=== PATIENT | male | born 1955 | race Caucasian/White ===

== ENCOUNTER 2018-07-07 14:51 | Inpatient (IN) ==
[2018-07-07] MEDS ORDERED: *HR* Promethazine 25 MG/ML VIAL IVP ONE (15:16)
--- NOTE | 2018-07-07 15:20 | Emergency Department Note ---
Disposition Clinical Impression: Cerebrovascular accident Qualifiers: CVA mechanism: occlusion Precerebral and cerebral artery: unspecified cerebral artery Qualified Code(s): I63.50 - Cerebral infarction due to unspecified occlusion or stenosis of unspecified cerebral artery Disposition: Admitted As Inpatient Condition: Good Referrals: NONE,PCP [Primary Care Provider] - Forms: ED Satisfaction Letter Time of Disposition: 18:45 Dizziness HPI - General Chief Complaint: ED Dizziness Stated Complaint: Dizziness,Vision changes Time Seen by Provider: 07/07/18 15:01 Source: patient Mode of arrival: ambulatory Limitations: no limitations Nursing Notes Reviewed: Yes Vital Signs Reviewed: Yes - History of Present Illness HPI Narrative: This is a 63-year-old male who comes to the emergency department reporting dizziness and difficulty with his balance that began 4 days prior to arrival. He also reports the onset of blurry vision at that time. He has worn glasses his entire life, but does not use them to read. He does not have bifocals or progressive lenses. He states the dizziness is associated with loss of equilibrium, and that this is worse when he first stands up. - Related Data Home Medications Medication Instructions Recorded Confirmed Aspirin [Adult Low Dose Aspirin EC] 81 mg PO DAILY 12/02/15 12/02/15 Atorvastatin [Lipitor] 10 mg PO HS 12/02/15 12/02/15 Gabapentin [Neurontin] 300 mg PO TID 12/02/15 12/02/15 Glimepiride [Amaryl] 4 mg PO DAILY 12/02/15 12/02/15 Metformin HCl [Glucophage] 1,000 mg PO 1-2XD 12/02/15 12/02/15 Metoprolol [Lopressor] 100 mg PO BID 12/02/15 12/02/15 Omeprazole [PriLOSEC] 20 mg PO DAILY 12/02/15 12/02/15 SitaGLIPtin [Januvia] 25 mg PO DAILY 12/02/15 12/02/15 Valsartan/Hydrochlorothiazide 320 mg PO DAILY 12/02/15 12/02/15 [Diovan Hct 320-25 mg Tablet] Previous Rx's Medication Instructions Recorded OxyCODONE Immed Rel [Roxicodone 5 1 - 2 tab PO Q4H PRN #60 tablet 12/03/15 MG] Rivaroxaban [Xarelto] 20 mg PO 1700 #30 tablet 12/03/15 Sulfamethoxazole/Trimeth DS 1 each PO BID #28 tablet 02/21/16 [Bactrim DS] Allergies Allergy/AdvReac Type Severity Reaction Status Date / Time No Known Allergies Allergy Verified 07/07/18 14:56 All systems ED: reviewed and negative except as stated. Eyes: Reports: vision change (Blurry vision) Neurological: Reports: abnormal gait, vertigo Past Medical History - Past Medical History Medical history: Reports: diabetes, hypertension Surgical history: Reports: angioplasty/stent Psychiatric history: Reports: no psych history - Social History Smoking Status: Never smoker Smokeless Tobacco Status: No Alcohol use: Reports: occasionally Drug use: Reports: none Physical Exam - General Limitations: no limitations General appearance: alert, in no apparent distress - Head Head exam: atraumatic, normocephalic, normal inspection - Eye Eye exam: Present: normal appearance, PERRL, EOMI. Absent: scleral icterus, conjunctival injection, nystagmus, miosis, mydriasis - Expanded Eye Exam Eyelids: left: normal inspection Pupils: Left: regular, round Sclera/Conjunctival: left: normal inspection Visual acuity (R) = 20/: 50 Visual acuity (L) = 20/: 40 With correction: No - Neck Neck exam: Present: normal inspection, full ROM, trachea midline - Chest Chest inspection: Present: normal inspection, symmetric chest wall rise - Respiratory Respiratory exam: Present: normal lung sounds bilaterally - Cardiovascular Cardiovascular exam: Present: regular rate, normal rhythm, normal heart sounds - Abdominal Exam Abdominal exam: Present: soft, Non-Tender. Absent: tenderness, distention, guarding, rebound, rigidity - Extremities Exam Extremities exam: Present: normal inspection, full ROM. Absent: tenderness, pedal edema - Neurological Exam Neurological exam: Present: alert, oriented X3, CN II-XII intact. Absent: normal gait (Gait is slightly wide-based, patient unable to tandem gait), motor sensory deficit - Expanded Neurological Exam Patient oriented to: Present: person, place, time Speech: Present: fluid speech Cranial nerves: EOM function (II, III, IV, ): Normal, facial sensation (V): Normal, facial palsy (VII): Normal, gag reflex (IX): Normal, spinal accessory function (XI): Normal, tongue deviation (XII): Normal Cerebellar function: finger to nose: Normal Motor strength - LUE: 5/5 Motor strength - RUE: 5/5 Motor strength - LLE: 5/5 Motor strength - RLE: 5/5 Upper motor neuron exam: kofi neglect: Absent bilaterally, pronator drift: Absent bilaterally Sensory exam upper extremity: light touch: Normal Sensory exam lower extremity: light touch: Normal Coma Scale Eye Opening: Spontaneous Coma Scale Motor Response: Obeys Commands Coma Scale Verbal Response: Oriented Coma Scale Total: 15 - Psychiatric Psychiatric exam: Present: normal affect, normal mood - Skin Skin exam: Present: warm, dry, intact, normal color Course Course Narrative: This is a 63-year-old male with persistent vertigo concerning for cerebellar stroke. Vital Signs Temperature 97.9 F 07/07/18 14:53 Pulse Rate 76 07/07/18 14:53 Respiratory Rate 16 07/07/18 14:53 Blood Pressure 185/93 07/07/18 14:53 O2 Sat by Pulse Oximetry 95 07/07/18 14:53 Temperature 97.9 F 07/07/18 14:53 Pulse Rate 82 07/07/18 18:44 Respiratory Rate 19 07/07/18 18:44 Blood Pressure 134/77 07/07/18 18:44 O2 Sat by Pulse Oximetry 97 07/07/18 18:44 Oxygen Delivery Oxygen Delivery Room Air Dizziness - Lab Data Lab results reviewed: Yes I reviewed the patient's lab results. Lab results narrative: CBC shows thrombocytopenia at 138 BMP shows elevated creatinine 1.35 Troponin was low Result diagrams: 07/07/18 15:15 07/07/18 15:15 Lab Results 07/07/18 07/07/18 Range/Units 15:15 15:15 WBC 7.5 (4.3-11.1) K/mcL RBC 5.63 H (4.19-5.50) M/mcL Hgb 15.9 (12.9-16.9) g/dL Hct 46.6 (37.5-50.1) % MCV 82.8 L (83.0-100.0) fL MCH 28.2 (28.0-33.3) pg MCHC 34.1 (31.6-35.5) g/dL RDW 15.4 H (11.5-14.5) % Plt Count 138 L (140-400) K/mcL MPV 11.5 (9.4-12.4) fL Immature Gran % 0.7 (0-4) % Seg Neutrophils % 71.4 % Lymphocytes % 17.3 % Monocytes % 7.8 % Eosinophils % 2.0 % Basophils % 0.8 % Neutrophils # 5.4 (1.6-8.9) K/mcL Lymphocytes # 1.3 (0.6-4.6) K/mcL Monocytes # 0.6 (0.0-1.3) K/mcL Eosinophils # 0.2 (0.0-0.6) K/mcL Basophils # 0.1 (0.0-0.2) K/mcL Sodium 133 L (136-145) mEq/L Potassium 4.0 (3.5-5.1) mEq/L Chloride 107 (98-107) mEq/L Carbon Dioxide 28 (23-29) mEq/L BUN 21 (8-23) mg/dL Creatinine 1.33 H (0.70-1.30) mg/dL Est GFR ( Amer) > 60 (> 60) Est GFR (Non-Af Amer) 54 L (> 60) BUN/Creatinine Ratio 16 (6-26) Glucose 236 H (70-105) mg/dL Calculated Osmolality 287 (280-300) Calcium 9.2 (8.6-10.3) mg/dL Troponin I < 0.03 (< 0.04) ng/mL - Radiology Data Radiology results reviewed: Yes I reviewed the patient's radiology results. Brain MRI showed a recent infarct in the posterior chris and multiple prior infarcts - EKG Data EKG attestation: Yes I reviewed and interpreted this EKG. EKG results narrative: EKG shows sinus rhythm, 75 bpm, T-wave inversions are noted in leads 1, 2, and aVF as well as V6, slight ST depression in V6 Critical Care Time Critical Care Time: Yes Total Critical Care Time: 15 Attestation: Critical care time was 15 minutes independent of separately billable procedures.
[2018-07-07 15:53] LABS: Basophils # 0.1 K/mcL (0.0-0.2); Basophils % 0.8 %; Eosinophils # 0.2 K/mcL (0.0-0.6); Hematocrit 46.6 % (37.5-50.1); Hemoglobin 15.9 g/dL (12.9-16.9); Immature Granulocytes % 0.7 % (0-4); Lymphocytes # 1.3 K/mcL (0.6-4.6); Lymphocytes % 17.3 %; Mean Corpuscular HGB Conc 34.1 g/dL (31.6-35.5); Mean Corpuscular Hemoglobin 28.2 pg (28.0-33.3); Mean Corpuscular Volume 82.8 fL (83.0-100.0); Mean Platelet Volume 11.5 fL (9.4-12.4); Monocytes # 0.6 K/mcL (0.0-1.3); Monocytes % 7.8 %; Neutrophils # 5.4 K/mcL (1.6-8.9); Platelet Count 138 K/mcL (140-400); Red Blood Count 5.63 M/mcL (4.19-5.50); Red Cell Distribution Width 15.4 % (11.5-14.5); Segmented Neutrophils % 71.4 %
[2018-07-07 16:15] LABS: BUN/Creatinine Ratio 16 (6-26); Blood Urea Nitrogen 21 mg/dL (8-23); Calcium 9.2 mg/dL (8.6-10.3); Carbon Dioxide 28 mEq/L (23-29); Chloride 107 mEq/L (98-107); Glucose 236 mg/dL (70-105); Osmolality,Calculated 287 (280-300); Sodium 133 mEq/L (136-145); eGFR For Non-African Americans 54 (> 60)
[2018-07-07 16:16] LABS: Troponin I < 0.03 ng/mL (< 0.04)
[2018-07-07] MEDS ORDERED: Gadolinium Contrast Agent (WT Based) IV PRN (20:19)
[2018-07-07] MEDS ORDERED: Dextrose Gel 15 GM/37.5 ML TUBE PO PRN ×2 (20:25)
[2018-07-07] MEDS ORDERED: 0.9 % Sodium Chloride 1,000 ML IVC SCH (20:30)
--- NOTE | 2018-07-07 20:54 | Internal Med History&Physical ---
Date of Encounter: 07/07/18 Time of Encounter: 20:51 Internal Medicine - H&P: HPI Chief complaint: dizziness Admitted From: Home Plans for Post Hospital Care: Home History of present illness: Mr. Pérez is a 63 year old man who is a former smoker with a history of diabetes , hypertension, peripheral vascular disease status post bypass grafting in both lower extremities and coronary artery disease status post quadruple bypass who presents with a complaint of dizziness and blurry vision that started in the evening 4 days ago of acute onset. He says since then his gait has been unsteady and his visual acuity has declined. He occasionally has diplopia and blurriness in seeing things. He denies headaches per se but says he has felt somewhat dizzy and lightheaded on occasions especially when he gets up to walk. He denies any associated chest pain, dyspnea or diaphoresis. He denies any trauma. On evaluation in the ER a brain MRI was done which showed the following: Punctate recent infarct in the posterior aspect of the chris along the anterior margin of the 4th ventricle. Otherwise, multiple old infarcts are noted. Multifocal small-vessel ischemic changes are also noted bilaterally. He is unaware of any strokes he may have had in the past and denies any focal deficits. On my assessment he was sitting comfortably in bed in no acute distress. I was able to walk him around the room without any difficulty. He reports he was previously on rivaroxaban prior to 2014 and was discontinued after his cardiac bypass. It is unclear if the rivaroxaban was due to an arrhythmia or venous clotting. Past Med Surg Social Fam HX - Past Medical History Medical history: diabetes, hypertension Psychiatric history: no psych history - Past Surgical History Surgical History: angioplasty/stent Additional surgical history: artery replaced to left leg x2, back surgery, cyst removed from neck - Social History Smoking Status: Never smoker Smokeless Tobacco Status: No Alcohol use: occasionally Drug use: none - Family History Father Hx Family Endocrine Disorder: Yes (diabetes) Mother Hx Family Cardiac Disorders: Yes Internal Medicine - H&P: Meds Aspirin [Adult Low Dose Aspirin EC] 81 mg PO DAILY 12/02/15 [History] Atorvastatin [Lipitor] 10 mg PO HS 12/02/15 [History] Gabapentin [Neurontin] 300 mg PO TID 12/02/15 [History] Glimepiride [Amaryl] 4 mg PO DAILY 12/02/15 [History] Metformin HCl [Glucophage] 1,000 mg PO 1-2XD 12/02/15 [History] Metoprolol [Lopressor] 100 mg PO BID 12/02/15 [History] Omeprazole [PriLOSEC] 20 mg PO DAILY 12/02/15 [History] SitaGLIPtin [Januvia] 25 mg PO DAILY 12/02/15 [History] Valsartan/Hydrochlorothiazide [Diovan Hct 320-25 mg Tablet] 320 mg PO DAILY [History] OxyCODONE Immed Rel [Roxicodone 5 MG] 1 - 2 tab PO Q4H PRN #60 tablet 12/03/15 [ Rx] Rivaroxaban [Xarelto] 20 mg PO 1700 #30 tablet 12/03/15 [Rx] Sulfamethoxazole/Trimeth DS [Bactrim DS] 1 each PO BID #28 tablet 02/21/16 [Rx] 3 Allergy/AdvReac Type Severity Reaction Status Date / Time No Known Allergies Allergy Verified 07/07/18 14:56 All Systems PM: A 10-system review of systems was performed and is negative for pertinent findings except as documented above in the HPI. - Constitutional Vitals: Temp Pulse Resp BP Pulse Ox 97.9 F 82 19 134/77 97 07/07/18 14:53 07/07/18 18:44 07/07/18 18:44 07/07/18 18:44 07/07/18 18:44 Exam: Vitals: Reviewed General: Well developed white male sitting comfortably in bed in no acute distress Skin: Warm and supple HEENT: Moist mucous membranes. No conjunctivae pallor. Neck: No lymphadenopathy. No JVD. No carotid bruits. No palpable thyroid. Chest: Normal thoracic expansion. Normal breath sounds. Clear to auscultation. Heart: Normal S1 & S2; rhythmic. No rubs or murmurs. Abdomen: Non-distended, soft and non-tender to palpation. No peritoneal reaction. Liver is normal in size. Spleen is not palpable. Extremities: No clubbing, cyanosis or edema. No calf tenderness. Normal distal pulses. Neurological: Awake, alert and oriented to person, place and time. No focal deficits. Strength 5/5 in all 4 extremities and sensation intact. No lateralization of gait when walked. Romberg (+). Psych: Affect appropriate. Internal Med - H&P Results - Labs CBC & Chem 7: 07/07/18 15:15 07/07/18 15:15 - Assessment and plan (1) Cerebrovascular accident Current Visit: Yes Status: Acute Assessment and plan: The patient appears to have an ischemic infarct affecting the posterior circulation and correlates well with his symptoms. He has multiple risk factors for CVA. Will given ASA 325mg now and to continue with 81mg daily. He may benefit from the addition of clopidogrel as he has already been on ASA however we will await neurology recommendation. High dose statin started. Will obtain head and neck MRA for further assessment. Hold antihypertensives for now. PT/OT eval. Neuro checks. Qualifiers: CVA mechanism: occlusion Precerebral and cerebral artery: posterior cerebral artery Laterality of affected vessel: unspecified Qualified Code(s) : I63.539 - Cerebral infarction due to unspecified occlusion or stenosis of unspecified posterior cerebral artery (2) CAD (coronary artery disease) Current Visit: Yes Status: Chronic Assessment and plan: No signs of acute ischemic disease. Will remain on antiplatelet therapy and statin. Qualifiers: Coronary Disease-Associated Artery/Lesion type: bypass graft [place] vs. transplanted heart: [place] heart Associated angina: without angina Qualified Code(s): I25.810 - Atherosclerosis of coronary artery bypass graft(s) without angina pectoris (3) PVD (peripheral vascular disease) Current Visit: Yes Status: Acute Assessment and plan: Has stopped smoking which is the most important risk factor. Will remain on antiplatelet and statin therapy. (4) Diabetes Current Visit: Yes Status: Chronic Assessment and plan: Will hold oral agents and place on insulin sliding scale for now. 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 Can be resumed tomorrow once stability is ensured and after subsequent brain studies are done. Qualifiers: Hypertension type: essential hypertension Qualified Code(s): I10 - Essential (primary) hypertension (6) Hyperlipidemia Current Visit: Yes Status: Chronic Assessment and plan: Will place on high dose statin therapy given ASCVD. Qualifiers: Hyperlipidemia type: unspecified Qualified Code(s): E78.5 - Hyperlipidemia , unspecified (7) DVT prophylaxis Current Visit: Yes Status: Acute Assessment and plan: SubQ heparin ordered. - Time Spent With Patient Total time spent is greater than 50% in coordination of care (as documented) at patient's floor/unit and/or counseling patient:
[2018-07-07] MEDS ORDERED: Gabapentin 300 MG CAPSULE PO SCH (21:00)
[2018-07-07] MEDS ORDERED: Aspirin 325 MG TABLET PO ONE (22:00)
[2018-07-07] MEDS: Insulin LISPRO 300 UNITS/3 ML VIAL SQ SCH (22:27)
[2018-07-07] MEDS: *HR* Heparin 5,000 UNIT/ML VIAL SQ SCH (22:32)
[2018-07-08 04:13] LABS: Basophils # 0.1 K/mcL (0.0-0.2); Basophils % 0.8 %; Eosinophils # 0.2 K/mcL (0.0-0.6); Eosinophils % 3.6 %; Hematocrit 44.2 % (37.5-50.1); Hemoglobin 14.6 g/dL (12.9-16.9); Immature Granulocytes % 0.3 % (0-4); Lymphocytes # 1.9 K/mcL (0.6-4.6); Lymphocytes % 30.8 %; Mean Corpuscular Hemoglobin 27.4 pg (28.0-33.3); Mean Corpuscular Volume 83.1 fL (83.0-100.0); Mean Platelet Volume 11.2 fL (9.4-12.4); Monocytes # 0.6 K/mcL (0.0-1.3); Monocytes % 8.9 %; Neutrophils # 3.4 K/mcL (1.6-8.9); Platelet Count 106 K/mcL (140-400); Red Blood Count 5.32 M/mcL (4.19-5.50); Red Cell Distribution Width 15.8 % (11.5-14.5); Segmented Neutrophils % 55.6 %
[2018-07-08 04:44] LABS: Alanine Aminotransferase 13 Units/L (7-52); Albumin 3.2 g/dL (3.5-5.7); Albumin/Globulin Ratio 1.2 (1.1-2.2); Alkaline Phosphatase 70 Units/L (34-104); Aspartate Amino Transferase 24 Units/L (13-39); BUN/Creatinine Ratio 19 (6-26); Bilirubin,Total 0.8 mg/dL (0.3-1.0); Blood Urea Nitrogen 23 mg/dL (8-23); Carbon Dioxide 27 mEq/L (23-29); Chloride 106 mEq/L (98-107); Chol/HDL Ratio 3.9 (0-4.9); Cholesterol 149 mg/dL (< 200); Globulin 2.6 g/dL (2.4-3.5); Glucose 192 mg/dL (70-105); HDL Cholesterol 38 mg/dL (40-59); LDL Cholesterol,Calculated 56 mg/dL (0-99); Osmolality,Calculated 295 (280-300); Sodium 138 mEq/L (136-145); Total Protein 5.8 g/dL (6.4-8.9); Triglycerides 274 mg/dL (< 150); eGFR For Non-African Americans > 60 (> 60)
[2018-07-08] MEDS: *HR* Heparin 5,000 UNIT/ML VIAL SQ SCH ×3 (05:50→20:01)
[2018-07-08] MEDS: Insulin LISPRO 300 UNITS/3 ML VIAL SQ SCH ×4 (07:59→21:03)
[2018-07-08] MEDS: Aspirin Enteric Coated 81 MG Tablet PO SCH (09:18)
--- NOTE | 2018-07-08 09:18 | Internal Med Progress Note ---
<Eduin Huertas P - Last Filed: 07/08/18 16:45> Date of Encounter: 07/08/18 Time of Encounter: 08:30 - Assessment and plan (1) Cerebrovascular accident Current Visit: Yes Status: Acute Assessment and plan: The patient appears to have an ischemic infarct affecting the posterior circulation and correlates well with his symptoms. He has multiple risk factors for CVA ie past smoker, male , age , HTN Given ASA 325mg sat and to continue with 81mg daily. Will appreciate neurology recommendation. He is on High dose statin statin Head and neck MRA angio , carotid doppler, Echo : No valvular lesions, no clot detected, MRA angio brain :no cerebral artery aneurysm, normal posterior cerebral circulation, moderate stenosis in Carotid bifurcation right side Hold antihypertensives for now to prevent decreasing cerebral perfusion pressure. Physical therapy and Occupational therapy evaluation Neurological symptoms monitoring regularly . Qualifiers: CVA mechanism: occlusion Precerebral and cerebral artery: posterior cerebral artery Laterality of affected vessel: unspecified Qualified Code(s) : I63.539 - Cerebral infarction due to unspecified occlusion or stenosis of unspecified posterior cerebral artery (2) Hypertension Current Visit: Yes Status: Chronic Assessment and plan: He is old case of HTN He was on Valsatran 325 mg and Metoprolol 150 mg Now he is on hold of anti -HTN medication to prevent cerebral hypopurfusion and edema BP 173/82 Qualifiers: Hypertension type: essential hypertension Qualified Code(s): I10 - Essential (primary) hypertension (3) PVD (peripheral vascular disease) Current Visit: Yes Status: Acute Assessment and plan: He is known case of Peripheral vascular disease He had gone bypass grafting for PVD in both limbs No symptoms during this visit (4) CAD (coronary artery disease) Current Visit: Yes Status: Chronic Assessment and plan: He is case of CAD He had undergone bypass surgery He is on high dose statin and aspirin Qualifiers: Coronary Disease-Associated Artery/Lesion type: bypass graft [place] vs. transplanted heart: d[place] heart Associated angina: without angina Qualified Code(s): I25.810 - Atherosclerosis of coronary artery bypass graft(s) without angina pectoris - Subjective Interval history: Today is 2nd day of admission. He is a 63 year old male with past medical history of diabetes, hypertension, PVD post bypass grafting in both lower extremities and CAD status post quadruple bypass presented here for dizziness and blurry vision , light headedness , difficulty to maintain body balance for last 4-5 days. He stated that his gait has been unsteady and his visual acuity has compromised . He occasionally used to have diplopia and blurry vision . He denies any associated chest pain, palpitation, dyspnea or diaphoresis, LOC, nausea , vomiting ,fever, limbs weakness or any focal neurological deficit , no h/o spinning things around him , any fall or trauma..He denies any h/o strokes and any focal neurological deficit today or in the past . He reports he was previously on rivaroxaban prior to 2014 and was discontinued after his cardiac bypass Neuro-consultation, Echo, CT angio neck and Carotid droppler done today . Echo : EF > 55% , no valvular lesion , no clot . Plain MRI head at ED shows : Punctate recent infarct in the posterior aspect of the chris along the inferior margin of the 4th ventricle, multifocal small focal ischemia,multiple old infarcts, Multifocal small-vessel ischemic changes are also noted bilaterally Carotid Doppler : Carotid bifurcation : 40-59% stenosis right side ,MRI angio: Normal appearance of the posterior circulation.Short segment severe stenosis of the proximal petrous segment of the distal right cervical internal carotid artery and no cerebral aneurysm identified. Today he is hemodynamically stable, symptoms are the same as before.Vitals: 98.2F, 86/ minutes, 173/ 82 .Labs: Na 138, K 4.0, GFR > 60, Hb 14.0 , Creatinine 1.2 , BUN 23, glucose 192 , TG 270, Cholesterol 149 - Constitutional Vitals: Temp Pulse Resp BP Pulse Ox 98.1 F 86 15 190/105 99 07/08/18 07:09 07/08/18 07:09 07/08/18 07:09 07/08/18 07:09 07/08/18 07:09 General appearance: Present: A&O X 3, pleasant, no acute distress, answers questions appropriately - Head Head exam: Present: atraumatic, normal inspection, normocephalic - Neck Additional comments: No JVD, no lymphadenopathy, Supple neck , no carotid bruit - Respiratory Additional comments: Normal chest expansion, normal air entry , no rales, crepitation - Cardiovascular Additional comments: S1S2 normal , no murmur , Rub or other added sound - GI/Abdominal Additional comments: Soft, warm , no organomegaly - Extremities Exam Additional comments: No calf swelling, no edema - Neurological Exam Neurological exam: Present: abnormal gait, alert, CN II-XII intact, oriented X3 , reflexes normal, no focal deficits, strengths equal and symetr throughout. Absent: pronater drift, facial droop, speech deficit - Psychiatric Additional comments: Normal affect, normal mood , oriented To TPP Internal Medicine: Result - Labs CBC & Chem 7: 07/08/18 03:51 07/08/18 03:51 Labs: Short CBC 07/08/18 Range/Units 03:51 WBC 6.2 (4.3-11.1) K/mcL Hgb 14.6 (12.9-16.9) g/dL Hct 44.2 (37.5-50.1) % Plt Count 106 L (140-400) K/mcL Neutrophils # 3.4 (1.6-8.9) K/mcL BMP 07/08/18 03:51 Sodium 138 Potassium 4.0 Chloride 106 Carbon Dioxide 27 BUN 23 Creatinine 1.20 Glucose 192 H Calcium 9.0 Liver Function 07/08/18 Range/Units 03:51 Total Bilirubin 0.8 (0.3-1.0) mg/dL AST 24 (13-39) Units/L ALT 13 (7-52) Units/L Alkaline Phosphatase 70 (34-104) Units/L Albumin 3.2 L (3.5-5.7) g/dL - VTE Documentation of Mechanical Device: Intermittent pneumatic compression device Consult Discharge Plan - Plan Referrals: Willie Roque, [employer] CONTR[employer] SUPERVISOR [Advanced Practice Nurse] - <Noel Robles - Last Filed: 07/08/18 18:22> Date of Encounter: 07/08/18 - Assessment and plan (1) Cerebrovascular accident Current Visit: Yes Status: Acute Qualifiers: CVA mechanism: thrombosis Precerebral and cerebral artery: posterior cerebral artery Laterality of affected vessel: left Qualified Code(s): I63.332 - Cerebral infarction due to thrombosis of left posterior cerebral artery (2) PVD (peripheral vascular disease) Current Visit: Yes Status: Acute (3) CAD (coronary artery disease) Current Visit: Yes Status: Chronic Qualifiers: Coronary Disease-Associated Artery/Lesion type: bypass graft [place] vs. transplanted heart: d[place] heart Associated angina: without angina Qualified Code(s): I25.810 - Atherosclerosis of coronary artery bypass graft(s) without angina pectoris (4) Diabetes Current Visit: Yes Status: Chronic Qualifiers: Diabetes mellitus type: type 2 Diabetes mellitus fdc insulin use: without technician terminal and repeater use Diabetes mellitus complication status: with circulatory complication Diabetes mellitus complication detail: with peripheral angiopathy without gangrene Qualified Code(s): E11.51 - Type 2 diabetes mellitus with diabetic peripheral angiopathy without gangrene (5) Hypertension Current Visit: Yes Status: Chronic Qualifiers: Hypertension type: essential hypertension Qualified Code(s): I10 - Essential (primary) hypertension - Constitutional Vitals: Temp Pulse Resp BP Pulse Ox 98.1 F 89 15 180/90 96 07/08/18 15:34 07/08/18 15:34 07/08/18 15:34 07/08/18 15:34 07/08/18 15:34 Internal Medicine: Result - Labs CBC & Chem 7: 07/08/18 03:51 07/08/18 03:51 Labs: Short CBC 07/08/18 Range/Units 03:51 WBC 6.2 (4.3-11.1) K/mcL Hgb 14.6 (12.9-16.9) g/dL Hct 44.2 (37.5-50.1) % Plt Count 106 L (140-400) K/mcL Neutrophils # 3.4 (1.6-8.9) K/mcL BMP 07/08/18 03:51 Sodium 138 Potassium 4.0 Chloride 106 Carbon Dioxide 27 BUN 23 Creatinine 1.20 Glucose 192 H Calcium 9.0 Liver Function 07/08/18 Range/Units 03:51 Total Bilirubin 0.8 (0.3-1.0) mg/dL AST 24 (13-39) Units/L ALT 13 (7-52) Units/L Alkaline Phosphatase 70 (34-104) Units/L Albumin 3.2 L (3.5-5.7) g/dL - Impressions Impressions Head MRA 07/08/18 20:19 IMPRESSION: 1. Normal appearance of the posterior circulation. 2. Short segment severe stenosis of the proximal petrous segment of the distal right cervical internal carotid artery. 3. No cerebral aneurysm identified. D/ / 07/08/2018 14:10:36 Pascual Mcfarlane MD / Kavita Carrizales Interpreting Provider: Pascual Mcfarlane MD Neck MRA 07/08/18 20:19 IMPRESSION: 1. Approximate 50% stenosis of the proximal left internal carotid artery based on NASCET criteria. 2. Redemonstration of a short segment severe stenosis of the proximal petrous segment of the distal right internal carotid artery, as seen on the MR angiogram, reported separately. 3. No significant vertebral artery stenosis evident. D/ / 07/08/2018 14:14:39 Pascual Mcfarlane MD / tyler Interpreting Provider: Pascual Mcfarlane MD Echocardiogram 07/08/18 20:22 Impressions: Blood pressure 190/105 mmHg at time of inpatient study. LVEF 50%. Not all LV wall segments were well visualized. Mild left ventricular diastolic dysfunction. Normal right ventricular structure and function. No significant valvular dysfunction. No pulmonary hypertension. No PFO with saline contrast injection. Left Ventricular Wall Motion: Rest Echo Findings The mid anterior septal, mid inferior lateral, basal anterior septal and basal inferior lateral melendez were not visualized. All other wall segments showed normal motion. Findings: Study Quality * Technically challenging due to body habitus. ECG Findings * Normal sinus rhythm. Left Ventricle * LVEF 50%. * Mild left ventricular diastolic dysfunction. * Normal LV chamber size and wall thickness. Right Ventricle * Normal right ventricular structure and function. Left Atrium * Normal left atrial size. Right Atrium * Normal right atrial size. Aortic Valve * No aortic regurgitation. * Aortic valve not well visualized. * No aortic stenosis. Mitral Valve * Mild mitral annular calcification * Normal mitral valve structure. * No mitral stenosis. * No mitral regurgitation. Tricuspid Valve * Normal tricuspid valve structure. * Trace tricuspid regurgitation. * Estimated RA pressure is 3 mmHg. Pulmonic Valve * Pulmonic valve is not well visualized. Pulmonary Artery * Pulmonary artery not well visualized. Aorta * Not well visualized. Pericardium * There is no pericardial effusion present. Interatrial Septum * No evidence of PFO with agitated saline contrast. IVC * The IVC is not well evaluated. - Attending Attestation I examined this patient and my medical decision-making was reviewed with the Resident Physician on 07/08/18. I agree with the documented findings, disposition and treatment plan as described except to the extent set forth below. Mr Pérez is currently admitted for acute CVA. He is undergoing further testing. He remains moderate to high risk due to potential for worsening clinical status. Mr Pérez has been up in halls. Overall appears to be improving. To have MRAs, echos and carotid duplex today. Appreciate neuro input. No fever or chills. Exam alert Comfortable in bed Mucus membranes dry Heart reg No wheeze abd soft No edema I/P 1. CVA - further work up today 2. HTN - will need to restart some medication in next 24 hours Further diagnoses and plan as above.
[2018-07-08 10:56] LABS: Estimated Average Glucose 212 mg/dl
--- NOTE | 2018-07-08 13:13 | Neurology - Consult Note ---
<Marvin Huff - Last Filed: 07/08/18 14:59> Date of Encounter: 07/08/18 Time of Encounter: 12:45 Assessment and Plan (1) Cerebrovascular accident Current Visit: Yes Status: Acute MRI brain showed a small recent punctate infarct in posterior aspect of chris and multiple old infarcts. His visual symptoms and dizziness with the posterior circulation infarct are consistent. He has no other focal deficits. His visual symptoms and gait have improved. Dizziness persists some but is more positional now. He has multiple risk factors including HTN, HLD, and DM and is on home 81mg asa, statin, oral antihyperglycemics, and metoprolol. I recommend continuation of these at [place]. Further more, I would recommend aggressive outpatient BP control if he is experiencing systolic BP's in the 200's. He has MRA of head and neck to assess posterior circulation today along with ECHO ordered. Qualifiers: CVA mechanism: occlusion Precerebral and cerebral artery: posterior cerebral artery Laterality of affected vessel: unspecified Qualified Code(s) : I63.539 - Cerebral infarction due to unspecified occlusion or stenosis of unspecified posterior cerebral artery History of Present Illness Chief complaint: Dizzy, diplopia, ataxia HPI: Mr. Pérez is a 63 year old male with a PMH significant for HTN, DM, HLD, PVD s/ p bilateral LE bypass, CAD s/p quadruple bypass and neurology was consulted for dizziness, diplopia, and ataxia. % days ago after eating dinner he was leaving a restaurant and got dizzy he described as the room was spinning and did not go away. The next morning he was still dizzy but also was having diplopia that was worse when looking to the R. He says he was having problems with depth perception and that is why he felt off balance when ambulating. He has had periods in the past with diplopia that have occurred with head position. He also experiences dizziness/lightheadedness when going from sitting to standing that last a few seconds occasionally but the dizziness this time is different. He denied any GONZALEZ, confusion, numbness/paresthesias, muscle weakness, chest pain , palpitations, or falls. He additionally noted periods at home when his BP is in the 200's systolic. Today he still complains of dizziness when standing and somewhat when turning his head to the R. His diplopia has improved and gait has improved. He is able to ambulate the halls fine without falling. MRI brain showed a recent punctate infarct involving the chirs and multiple old infarcts. Past Med Surg Social Fam HX - Past Medical History Medical history: diabetes, hypertension Psychiatric history: no psych history - Past Surgical History Surgical History: angioplasty/stent, coronary bypass (CABG) Additional surgical history: artery replaced to left leg x2, back surgery, cyst removed from neck - Social History Smoking Status: Never smoker Smokeless Tobacco Status: Yes Alcohol use: occasionally Drug use: none - Family History Father Hx Family Endocrine Disorder: Yes (diabetes) Mother Hx Family Cardiac Disorders: Yes Medications and Allergies Glimepiride [Amaryl] 4 mg PO BID 12/02/15 [History] Metformin HCl [Glucophage] 1,000 mg PO BID 12/02/15 [History] Metoprolol [Lopressor] 150 mg PO BID 12/02/15 [History] Omeprazole [PriLOSEC] 20 mg PO DAILY 12/02/15 [History] Rosuvastatin [Crestor] 20 mg PO HS 07/07/18 [History] Aspirin Enteric Coated [Aspirin EC] 81 mg PO DAILY 07/08/18 [History] Valsartan [Diovan] 320 mg PO DAILY 07/08/18 [History] 3 Allergy/AdvReac Type Severity Reaction Status Date / Time No Known Allergies Allergy Verified 07/08/18 10:07 All Systems: The remainder of the systems were reviewed and are negative Physical Examination - Vital Signs Vital Signs: Initial Vital Signs Temp Pulse Resp BP Pulse Ox 97.9 F 76 16 185/93 95 07/07/18 14:53 07/07/18 14:53 07/07/18 14:53 07/07/18 14:53 07/07/18 14:53 - Constitutional General appearance: comfortable - Neurologic Sensorimotor examination: intact Motor examination - right side: 5/5: deltoids, biceps, triceps, wrist flexion, wrist extension, footwear sales leader, hip flexors, tibialis Anterior, quadriceps, toe extension (EHL), plantarflexion Motor examination - left side: 5/5: deltoids, biceps, triceps, wrist flexion, wrist extension, hip flexors, footwear sales leader, quadriceps, tibialis Anterior, toe extension (EHL), plantarflexion Detailed sensory examination: intact Reflex and gait examination: intact Reflexes: Biceps: 2+, Triceps: 2+, Brachioradialis: 2+, Patella: 2+, Achilles: 2 + Mental Status Examination: awake, alert, oriented to person, oriented to place, oriented to time, follows commands appropriately, answers questions appropriately, no aphasia Cranial nerve examination: PERRL, EOMI, sensory to face intact, mastication intact, no facial asymmetry is present, no dysarthria, hearing is intact symmetrically, soft palate elevates bilaterally upon phonation, flexes SCM and trapezius muscles symmetrically with full power, tongue protrudes midline, no atrophy or facial fasiculations present Cerebellar examination: no dysmetria, performs finger to nose and heel to lebron symmetrically without ataxia, no gait ataxia, no truncal ataxia Results - Laboratory Findings CBC and BMP: 07/08/18 03:51 07/08/18 03:51 Abnormal lab findings: Abnormal lab results MCH 27.4 pg (28.0-33.3) L 07/08/18 03:51 RDW 15.8 % (11.5-14.5) H 07/08/18 03:51 Plt Count 106 K/mcL (140-400) L 07/08/18 03:51 Glucose 192 mg/dL (70-105) H 07/08/18 03:51 POC Glucose 103 mg/dL (70-99) H 07/07/18 21:30 Hemoglobin A1c 9.0 % (-5.6) H 07/08/18 03:51 Serum Total Protein 5.8 g/dL (6.4-8.9) L 07/08/18 03:51 Albumin 3.2 g/dL (3.5-5.7) L 07/08/18 03:51 Triglycerides 274 mg/dL (< 150) H 07/08/18 03:51 VLDL Cholesterol, Calc 55 mg/dL (< 31) H 07/08/18 03:51 HDL Cholesterol 38 mg/dL (40-59) L 07/08/18 03:51 Consult Discharge Plan - Plan Referrals: Willie Roque, HOTEL CONCIERGE [Advanced Practice Nurse] - <Senthil Dean - Last Filed: 07/08/18 15:36> Date of Encounter: 07/08/18 Time of Encounter: 15:27 Assessment and Plan (1) Cerebrovascular accident Current Visit: Yes Status: Acute As above.. I agree with Dr. Huff's account as above. Aggressive management of his hypertension is paramount. Statins and antiplatelet therapy are also the rule. There is severe stenosis of the proximal petrous portion of the right internal carotid artery. However this is been asymptomatic. Carotid Doppler study reveals nonstenotic plaquing. I recommend outpatient consultation with neuro-interventional list to determine whether or not it is advisable to treat the intracranial right carotid artery stenosis medically or to consider stenting. Echocardiogram was unremarkable. Qualifiers: CVA mechanism: occlusion Precerebral and cerebral artery: posterior cerebral artery Laterality of affected vessel: unspecified Qualified Code(s) : I63.539 - Cerebral infarction due to unspecified occlusion or stenosis of unspecified posterior cerebral artery History of Present Illness HPI: The chart was reviewed, patient was seen and examined independently. I agree with Dr. Huff's account as stated above. I did review the MRI scan of the brain which does reveal a very tiny punctate area of infarction in the area of the fourth ventricle. This is very likely the result of his risk factors of diabetes along with extremely elevated blood pressure resulting in small vessel disease/basal spasm. He still feels a bit dizzy is and is not quite back to his normal baseline. All Systems: The remainder of the systems were reviewed and are negative Review of Systems: Balance of the systems review is negative. Physical Examination - Vital Signs Vital Signs: Initial Vital Signs Temp Pulse Resp BP Pulse Ox 97.9 F 76 16 185/93 95 07/07/18 14:53 07/07/18 14:53 07/07/18 14:53 07/07/18 14:53 07/07/18 14:53 - Constitutional General appearance: comfortable - Neurologic Sensorimotor examination: intact Detailed motor examination: full strength in all major muscle groups Motor examination - right side: 5/5: deltoids, biceps, triceps, wrist flexion, wrist extension, footwear sales leader, hip flexors, tibialis Anterior, quadriceps, toe extension (EHL), plantarflexion Motor examination - left side: 5/5: deltoids, biceps, triceps, wrist flexion, wrist extension, hip flexors, footwear sales leader, quadriceps, tibialis Anterior, toe extension (EHL), plantarflexion Mental Status Examination: awake, alert, oriented to person, oriented to place, oriented to time, follows commands appropriately, answers questions appropriately, no agnosia, no aphasia, no aproxia Cranial nerve examination: PERRL, EOMI, visual zimmerman intact, corneal reflexes brisk symmetrically, sensory to face intact, mastication intact, no facial asymmetry is present, no dysarthria, hearing is intact symmetrically, soft palate elevates bilaterally upon phonation, gag reflex intact, flexes SCM and trapezius muscles symmetrically with full power, tongue protrudes midline, no atrophy or facial fasiculations present Cerebellar examination: no dysmetria, performs finger to nose and heel to lebron symmetrically without ataxia, no gait ataxia, no truncal ataxia, no difficulty with rapid alternating movements Results - Laboratory Findings CBC and BMP: 07/08/18 03:51 07/08/18 03:51 Abnormal lab findings: Abnormal lab results MCH 27.4 pg (28.0-33.3) L 07/08/18 03:51 RDW 15.8 % (11.5-14.5) H 07/08/18 03:51 Plt Count 106 K/mcL (140-400) L 07/08/18 03:51 Glucose 192 mg/dL (70-105) H 07/08/18 03:51 POC Glucose 153 mg/dL (70-99) H 07/08/18 12:08 Hemoglobin A1c 9.0 % (-5.6) H 07/08/18 03:51 Serum Total Protein 5.8 g/dL (6.4-8.9) L 07/08/18 03:51 Albumin 3.2 g/dL (3.5-5.7) L 07/08/18 03:51 Triglycerides 274 mg/dL (< 150) H 07/08/18 03:51 VLDL Cholesterol, Calc 55 mg/dL (< 31) H 07/08/18 03:51 HDL Cholesterol 38 mg/dL (40-59) L 07/08/18 03:51
--- NOTE | 2018-07-08 15:33 | Electrocardiograph Report ---
[address] [address] Test Date: 2018-07-07 Pat Name: Jose Pérez Department: Room: [facility] Gender: M [employer]: : 1955 Requested By: Ashkan Rubio Order Number: [id number] Reading MD: Lauro Khan Measurements Intervals [place] Rate: 75 P: 74 OR: 176 QRS: 65 QRSD: 101 T: 227 QT: 425 QTc: 475 Interpretive Statements Sinus rhythm Inferolateral ST-T wave changes Electronically Signed On 07-08-2018 15:32:06 EDT by Lauro Khan
[2018-07-09] MEDS: *HR* Heparin 5,000 UNIT/ML VIAL SQ SCH ×2 (05:34→14:54)
[2018-07-09] MEDS: Aspirin Enteric Coated 81 MG Tablet PO SCH (08:14)
[2018-07-09] MEDS: Insulin LISPRO 300 UNITS/3 ML VIAL SQ SCH ×3 (08:17→16:23)
--- NOTE | 2018-07-09 08:51 | Neurology Progress Note ---
Date of Encounter: 07/09/18 Time of Encounter: 08:48 Assessment and Plan (1) Cerebrovascular accident Current Visit: Yes Status: Acute Qualifiers: CVA mechanism: thrombosis Precerebral and cerebral artery: posterior cerebral artery Laterality of affected vessel: left Qualified Code(s): I63.332 - Cerebral infarction due to thrombosis of left posterior cerebral artery (2) Acute lacunar infarction Current Visit: Yes Status: Acute The patient does reveal has experienced an acute lacunar infarct in the chris adjacent to the fourth ventricle. I believe that HIS acute symptoms are referable to this. She really has risk factors of hypertension and diabetes are the cause. This juncture I feel that we should normalize his blood pressure and aggressively manage his hypertension. I would also recommend an evaluation with Dr. Rosa or Dr. Chavarria. Both are neuro-interventional list at [facility] in [place], who can properly assess the need for intervention regarding the severe right intracranial carotid artery stenosis. I would maintain him on aspirin 325 mg daily. I will reevaluate him at your request. Subjective Interval history: Chart was reviewed, patient was seen and examined. Case was discussed with nursing. Patient has had no complaints overnight. He feels that his balance is improving he still feels some problem with his eyes however denies diplopia. His blood pressure this morning was greater than 200 systolic. However overall he feels improved. Workup at this point is been completed. There is severe stenosis of the petrous portion of the right internal carotid artery. However this has been asymptomatic. Echocardiogram was unremarkable. Objective - Constitutional Vitals: Temp Pulse Resp BP Pulse Ox 97.5 F L 96 16 204/104 97 07/09/18 07:45 07/09/18 07:45 07/09/18 07:45 07/09/18 07:45 07/09/18 07:45 - Neurological Exam Sensorimotor examination: Present: intact Motor Examination: Present: full strength in all major muscle groups Motor examination - right side: 5/5: deltoids, biceps, triceps, field education coordinator, hip flexors, tibialis Anterior, quadriceps, toe extension (EHL), plantarflexion Motor examination - left side: 5/5: deltoids, biceps, triceps, hip flexors, field education coordinator , quadriceps, tibialis Anterior, toe extension (EHL), plantarflexion Sensation intact: Present: intact Reflex and gait examination: intact Mental Status Examination: Present: awake, alert, oriented to person, oriented to place, oriented to time, follows commands appropriately, answers questions appropriately, no agnosia, no aphasia, no aproxia Cranial nerve examination: Present: PERRL, EOMI, visual zimmerman intact, corneal reflexes brisk symmetrically, sensory to face intact, mastication intact, no facial asymmetry is present, no dysarthria, hearing is intact symmetrically, soft palate elevates bilaterally upon phonation, gag reflex intact, flexes SCM and trapezius muscles symmetrically with full power, tongue protrudes midline, no atrophy or facial fasiculations present Cerebellar examination: Present: no dysmetria, performs finger to nose and heel to lebron symmetrically without ataxia, no gait ataxia, no truncal ataxia, no difficulty with rapid alternating movements - VTE Documentation of Mechanical Device: Intermittent pneumatic compression device Results - Laboratory Findings CBC and BMP: 07/08/18 03:51 07/08/18 03:51 Abnormal lab findings: Abnormal lab results MCH 27.4 pg (28.0-33.3) L 07/08/18 03:51 RDW 15.8 % (11.5-14.5) H 07/08/18 03:51 Plt Count 106 K/mcL (140-400) L 07/08/18 03:51 Glucose 192 mg/dL (70-105) H 07/08/18 03:51 POC Glucose 121 mg/dL (70-99) H 07/08/18 20:45 Hemoglobin A1c 9.0 % (-5.6) H 07/08/18 03:51 Serum Total Protein 5.8 g/dL (6.4-8.9) L 07/08/18 03:51 Albumin 3.2 g/dL (3.5-5.7) L 07/08/18 03:51 Triglycerides 274 mg/dL (< 150) H 07/08/18 03:51 VLDL Cholesterol, Calc 55 mg/dL (< 31) H 07/08/18 03:51 HDL Cholesterol 38 mg/dL (40-59) L 07/08/18 03:51 Consult Discharge Plan - Plan Referrals: Willie Roque, CHR[employer]ANER [Advanced Practice Nurse] -
[2018-07-09] MEDS: Metoprolol 100 MG TABLET PO SCH ×2 (09:30→20:20)
[2018-07-09] MEDS: Valsartan 160 MG TABLET PO SCH (09:31)
--- NOTE | 2018-07-09 09:36 | Internal Med Progress Note ---
<Eduin Huertas P - Last Filed: 07/09/18 17:00> Date of Encounter: 07/09/18 Time of Encounter: 09:00 - Assessment and plan (1) Cerebrovascular accident Current Visit: Yes Status: Acute Assessment and plan: The patient appears to have an ischemic infarct affecting posterior chris and adjacent to 4th ventricle and correlates well with his symptoms. He has multiple risk factors for CVA ie past smoker, male , age , HTN Given ASA 325mg sat and to continue with 81mg daily. Will appreciate neurology recommendation. He is on High dose statin Head and neck MRA angio , carotid doppler, Echo : No valvular lesions, no clot detected, MRA angio :no cerebral artery aneurysm, normal posterior cerebral circulation, 50% stenosis proximal left internal carotid artery in Carotid bifurcation right side , severe stenosis of proximal petrous segment of distal right internal carotid artery . Hold antihypertensives for now to prevent decreasing cerebral perfusion pressure. Physical therapy and Occupational therapy evaluation Neurological symptoms monitoring regularly . Qualifiers: CVA mechanism: thrombosis Precerebral and cerebral artery: posterior cerebral artery Laterality of affected vessel: left Qualified Code(s): I63.332 - Cerebral infarction due to thrombosis of left posterior cerebral artery (2) Hypertension Current Visit: Yes Status: Chronic Assessment and plan: He is old case of HTN He was on Valsatran 325 mg and Metoprolol 150 mg Now he is on hold of anti -HTN medication to prevent cerebral hypopurfusion and cerebral edema BP 204/104 Qualifiers: Hypertension type: essential hypertension Qualified Code(s): I10 - Essential (primary) hypertension (3) PVD (peripheral vascular disease) Current Visit: Yes Status: Chronic Assessment and plan: He is known case of Peripheral vascular disease He had gone bypass grafting for PVD in both limbs No symptoms during this visit (4) CAD (coronary artery disease) Current Visit: Yes Status: Chronic Assessment and plan: He is case of CAD He had undergone bypass surgery He is on high dose statin and aspirin Qualifiers: Coronary Disease-Associated Artery/Lesion type: bypass graft [place] vs. transplanted heart: [place] heart Associated angina: without angina Qualified Code(s): I25.810 - Atherosclerosis of coronary artery bypass graft(s) without angina pectoris - Subjective Interval history: Today is 3rd day of admission. He is a 63 year old male with past medical history of diabetes, hypertension, PVD post bypass grafting in both lower extremities and CAD status post quadruple bypass presented here for dizziness and blurry vision , light headedness , difficulty to maintain body balance for last 4-5 days. He stated that his gait has been unsteady and his visual acuity has compromised . He occasionally used to have diplopia and blurry vision . He denies any associated chest pain, palpitation, dyspnea or diaphoresis, LOC, nausea , vomiting ,fever, limbs weakness or any other focal neurological deficit , no spinning things around him , any fall or trauma..He denies any h/ o strokes and any focal neurological deficit today or in the past . He reports he was previously on rivaroxaban prior to 2014 and was discontinued after his cardiac bypass Neuro-consultation, Echo, CT angio neck and Carotid Doppler done today . Echo : EF > 55% , no valvular lesion , no clot . Plain MRI head at ED shows : Punctate recent infarct in the posterior aspect of the Chris along the inferior margin of the 4th ventricle, multifocal small focal ischemia,multiple old infarcts, Multifocal small-vessel ischemic changes are also noted bilaterally.Carotid Doppler : Carotid bifurcation : 40-59% stenosis right side ,MRI angio: Normal appearance of the posterior circulation.Short segment severe stenosis of the proximal petrous segment of the distal right cervical internal carotid artery and no cerebral aneurysm identified. Today he is hemodynamically stable, symptomatically better , 80 % improvement since admission, Unsteady Gait is better , he can walk around the jalloh, coordination better dizziness and blurring of vision has been improved .Vitals : 97.4 F, 96/ minutes, 204/104 .Labs: Na 138, K 4.0, GFR > 60, Hb 14.6, Creatinine 1.2 , BUN 23, glucose 192 , TG 270, Cholesterol 149 . We are closely monitoring his blood pressure, appreciate neurologist recommendation. We started his blood pressure medication . His latest BP is 161/82, he is on valsatran 320 mg and Metoprolol 150 mg . - Constitutional Vitals: Temp Pulse Resp BP Pulse Ox 97.5 F L 96 16 204/104 97 07/09/18 07:45 07/09/18 07:45 07/09/18 07:45 07/09/18 07:45 07/09/18 07:45 General appearance: Present: A&O X 3, pleasant, no acute distress, answers questions appropriately - Head Head exam: Present: atraumatic, normal inspection, normocephalic - Neck Additional comments: Supple, no JVD, no stiffness, no carotid bruit - Respiratory Additional comments: Normal chest expansion , normal air entry both side , no rales and rhonchi noted - Cardiovascular Additional comments: Normal rate and rhythm, S1S2 no murmur, - GI/Abdominal Additional comments: Soft warm , no tenderness , no organomegaly - Extremities Exam Additional comments: no calf swelling , no edema - Neurological Exam Neurological exam: Present: abnormal gait, alert, CN II-XII intact, oriented X3 , reflexes normal, no focal deficits, strengths equal and symetr throughout. Absent: motor sensory deficit, speech deficit Internal Medicine: Result - Labs CBC & Chem 7: 07/08/18 03:51 07/08/18 03:51 - Impressions Impressions Head MRA 07/08/18 20:19 IMPRESSION: 1. Normal appearance of the posterior circulation. 2. Short segment severe stenosis of the proximal petrous segment of the distal right cervical internal carotid artery. 3. No cerebral aneurysm identified. D/ / 07/08/2018 14:10:36 Pascual Mcfarlane MD / Kavita Carrizales Interpreting Provider: Pascual Mcfarlane MD Neck MRA 07/08/18 20:19 IMPRESSION: 1. Approximate 50% stenosis of the proximal left internal carotid artery based on NASCET criteria. 2. Redemonstration of a short segment severe stenosis of the proximal petrous segment of the distal right internal carotid artery, as seen on the MR angiogram, reported separately. 3. No significant vertebral artery stenosis evident. D/ / 07/08/2018 14:14:39 Pascual Mcfarlane MD / tyler Interpreting Provider: Pascual Mcfarlane MD Echocardiogram 07/08/18 20:22 Impressions: Blood pressure 190/105 mmHg at time of inpatient study. LVEF 50%. Not all LV wall segments were well visualized. Mild left ventricular diastolic dysfunction. Normal right ventricular structure and function. No significant valvular dysfunction. No pulmonary hypertension. No PFO with saline contrast injection. Left Ventricular Wall Motion: Rest Echo Findings The mid anterior septal, mid inferior lateral, basal anterior septal and basal inferior lateral melendez were not visualized. All other wall segments showed normal motion. Findings: Study Quality * Technically challenging due to body habitus. ECG Findings * Normal sinus rhythm. Left Ventricle * LVEF 50%. * Mild left ventricular diastolic dysfunction. * Normal LV chamber size and wall thickness. Right Ventricle * Normal right ventricular structure and function. Left Atrium * Normal left atrial size. Right Atrium * Normal right atrial size. Aortic Valve * No aortic regurgitation. * Aortic valve not well visualized. * No aortic stenosis. Mitral Valve * Mild mitral annular calcification * Normal mitral valve structure. * No mitral stenosis. * No mitral regurgitation. Tricuspid Valve * Normal tricuspid valve structure. * Trace tricuspid regurgitation. * Estimated RA pressure is 3 mmHg. Pulmonic Valve * Pulmonic valve is not well visualized. Pulmonary Artery * Pulmonary artery not well visualized. Aorta * Not well visualized. Pericardium * There is no pericardial effusion present. Interatrial Septum * No evidence of PFO with agitated saline contrast. IVC * The IVC is not well evaluated. - VTE Documentation of Mechanical Device: Intermittent pneumatic compression device Consult Discharge Plan - Plan Referrals: Willie Roque, TALENT DEVELOPMENT ANALYST [Advanced Practice Nurse] - 07/12/18 7:00 am <Timi Johnson - Last Filed: 07/10/18 17:26> Date of Encounter: 07/09/18 - Assessment and plan (1) Cerebrovascular accident Current Visit: Yes Status: Acute Qualifiers: CVA mechanism: thrombosis Precerebral and cerebral artery: posterior cerebral artery Laterality of affected vessel: left Qualified Code(s): I63.332 - Cerebral infarction due to thrombosis of left posterior cerebral artery (2) Hypertension Current Visit: Yes Status: Chronic Qualifiers: Hypertension type: essential hypertension Qualified Code(s): I10 - Essential (primary) hypertension (3) PVD (peripheral vascular disease) Current Visit: Yes Status: Chronic (4) Hyperlipidemia Current Visit: Yes Status: Chronic Qualifiers: Hyperlipidemia type: unspecified Qualified Code(s): E78.5 - Hyperlipidemia , unspecified - Time Spent With Patient 25 - 35 minutes - Constitutional Vitals: Temp Pulse Resp BP Pulse Ox 97.7 F 68 18 159/89 97 07/10/18 16:24 07/10/18 16:24 07/10/18 16:24 07/10/18 16:24 07/10/18 16:24 Internal Medicine: Result - Labs CBC & Chem 7: 07/08/18 03:51 07/08/18 03:51 - Attending Attestation I SAW/EXAMINED AND EVALUATED THE PATIENT WITH THE RESIDENT ON THE DAY OF VISIT. THE CASE WAS DISCUSSED WITH HIM/HER. I AGREE WITH THE FINDINGS/PLAN, DOCUMENTED IN THE RESIDENT'S PROGRESS NOTE. THE DOCUMENT WAS EDITED BY ME TO CORRECT ERRORS AND ADD MISSING DATA.
--- NOTE | 2018-07-09 16:16 | Discharge Summary ---
<Eduin Huertas P - Last Filed: 07/09/18 16:59> - NOTES TO OUTPATIENT PROVIDER Notes to Outpatient Provider: The patient will follow up with his PCP and Neurology Physician at Outpatient Unit Date of Encounter: 07/09/18 Time of Encounter: 03:00 - Discharge Diagnosis (1) Cerebrovascular accident Priority: Primary Status: Acute Comments: The patient appears to have an ischemic infarct affecting posterior chris and adjacent to 4th ventricle and correlates well with his symptoms. He has multiple risk factors for CVA ie past smoker, male , age , HTN Given ASA 325mg stat and continued the same dose and he is on statin . Head and neck MRA angio , carotid doppler, Echo : No valvular lesions, no clot detected, MRA angio head neck :no cerebral artery aneurysm, normal posterior cerebral circulation, 50% stenosis proximal left internal carotid artery . severe stenosis of proximal petrous segment of distal right internal carotid artery .His antihypertensives medications has been resumed . Neurology evaluation and recommendation followed ,Physical therapy and Occupational therapy evaluation done. He is hemodynamically stable, symptoms are much better today. We are monitoring his blood pressure with 3 anti hypertensive medications. Qualifiers: CVA mechanism: thrombosis Precerebral and cerebral artery: posterior cerebral artery Laterality of affected vessel: left Qualified Code(s): I63.332 - Cerebral infarction due to thrombosis of left posterior cerebral artery (2) Hypertension Priority: Primary Status: Chronic Comments: He is old and diagnosed case of essential HTN He was on Valsatran 325 mg and Metoprolol 150 mg and Norvasc 5 mg added today. We are closely monitoring his blood pressure. latest BP 204/104 Qualifiers: Hypertension type: essential hypertension Qualified Code(s): I10 - Essential (primary) hypertension (3) PVD (peripheral vascular disease) Priority: Secondary Status: Chronic (4) CAD (coronary artery disease) Priority: Secondary Status: Chronic Qualifiers: Coronary Disease-Associated Artery/Lesion type: bypass graft [place] vs. transplanted heart: [place] heart Associated angina: without angina Qualified Code(s): I25.810 - Atherosclerosis of coronary artery bypass graft(s) without angina pectoris Hospital course: Mr. Pérez is a 63 year old male with past medical history of diabetes, hypertension, PVD post bypass grafting in both lower extremities and CAD status post quadruple bypass presented to [facility] on 07/07 for dizziness and blurry vision , light headedness , difficulty to maintain body balance for last 4-5 days. He stated that his gait has been unsteady and his visual acuity has been compromised . He occasionally used to have diplopia and blurry vision . He denies any associated chest pain, palpitation, dyspnea or diaphoresis, LOC, nausea , vomiting ,fever, limbs weakness or any other focal neurological deficit , no spinning things around him , any fall or trauma..He denies any h/o strokes and any focal neurological deficit or in the past . He reports he was previously on rivaroxaban prior to 2014 and was discontinued after his cardiac bypass Neuro-consultation, Echo, CT angio neck and Carotid Doppler done today . Echo : EF > 55% , no valvular lesion , no clot . Plain MRI head at ED shows : Punctate recent infarct in the posterior aspect of the Chris along the inferior margin of the 4th ventricle, multifocal small focal ischemia ,multiple old infarcts, Multifocal small-vessel ischemic changes are also noted bilaterally.Carotid Doppler : Internal Carotid : 50% stenosis left side ,MRI angio: Normal appearance of the posterior circulation.Short segment severe stenosis of the proximal petrous segment of the distal right cervical internal carotid artery and no cerebral aneurysm identified. Today he is hemodynamically stable, symptomatically better , 80 % improvement since admission, Unsteady Gait is better , he can walk around the jalloh, coordination better dizziness and blurring of vision has been improved .Vitals : 97.4 F, 96/ minutes, 204/104 .Labs: Na 138, K 4.0, GFR > 60, Hb 14.6, Creatinine 1.2 , BUN 23, glucose 192 , TG 270, Cholesterol 149 . We are closely monitoring his blood pressure, appreciate neurologist recommendation. We started his blood pressure medication . His latest BP is 161/82, he is already on valsatran 320 mg and Metoprolol 150 mg , we added Norvasc5 mg to control his blood pressure. We are discharging him as he is hemodynamically stable and symptomatically improved .He will follow up with Neurology Physician and his Primary care doctor. - Time Spent with Patient Total time spent providing and/or coordinating discharge services: - Discharge Medications Home Medications: Glimepiride [Amaryl] 4 mg PO BID 12/02/15 [History] Metformin HCl [Glucophage] 1,000 mg PO BID 12/02/15 [History] Metoprolol [Lopressor] 150 mg PO BID 12/02/15 [History] Omeprazole [PriLOSEC] 20 mg PO DAILY 12/02/15 [History] Rosuvastatin [Crestor] 20 mg PO HS 07/07/18 [History] Valsartan [Diovan] 320 mg PO DAILY 07/08/18 [History] Aspirin Enteric Coated [Aspirin EC] 325 mg PO DAILY tablet. 07/09/18 [Rx] amLODIPine [Norvasc] 5 mg PO DAILY tablet 07/09/18 [Rx] Allergies/Adverse Reactions: 3 Allergy/AdvReac Type Severity Reaction Status Date / Time No Known Allergies Allergy Verified 07/08/18 10:07 Date of admission: 07/07/18 20:58 Primary care physician: PCP NONE - Constitutional Vitals: Temp Pulse Resp BP Pulse Ox 97.8 F 67 16 161/82 97 07/09/18 11:21 07/09/18 11:21 07/09/18 11:21 07/09/18 11:21 07/09/18 11:21 General appearance: Present: A&O X 3, pleasant, no acute distress, answers questions appropriately - Head Head exam: Present: atraumatic, normal inspection, normocephalic - Neck Neck exam general surgery: Present: full ROM, supple. Absent: nuchal rigidity - Respiratory Additional comments: Normal rate and rhythm, S1S2 , no murmur, no rub - Cardiovascular Additional comments: Normal rate rhythm, S1S2 no murmur, rub - GI/Abdominal Additional comments: Soft, warm , no organomegaly , no rigidity and guarding - Extremities Exam Additional comments: No edema, no calf swelling - Neurological Exam Neurological exam: Present: alert, CN II-XII intact, oriented X3, reflexes normal, no focal deficits, strengths equal and symetr throughout - Patient Status Disposition: Home, Self-Care Condition: Good Overall status at discharge: patient is progressing back to baseline - Discharge Instructions Follow Up With: Willie Roque, CERTIFIED [employer] FACILITY OPERATOR [Advanced Practice Nurse] - 07/12/18 7:00 am - VTE Documentation of Mechanical Device: Intermittent pneumatic compression device <Timi Johnson - Last Filed: 07/10/18 17:30> Date of Encounter: 07/09/18 - Discharge Diagnosis (1) Cerebrovascular accident Status: Acute Qualifiers: CVA mechanism: thrombosis Precerebral and cerebral artery: posterior cerebral artery Laterality of affected vessel: left Qualified Code(s): I63.332 - Cerebral infarction due to thrombosis of left posterior cerebral artery (2) Hypertension Status: Chronic Qualifiers: Hypertension type: essential hypertension Qualified Code(s): I10 - Essential (primary) hypertension (3) PVD (peripheral vascular disease) Status: Chronic (4) Hyperlipidemia Status: Chronic Qualifiers: Hyperlipidemia type: unspecified Qualified Code(s): E78.5 - Hyperlipidemia , unspecified Hospital course: Mr. Pérez is a 63 year old male - Time Spent with Patient Total time spent providing and/or coordinating discharge services: Date of admission: 07/07/18 20:58 Primary care physician: PCP NONE - Constitutional Vitals: Temp Pulse Resp BP Pulse Ox 97.7 F 68 18 159/89 97 07/10/18 16:24 07/10/18 16:24 07/10/18 16:24 07/10/18 16:24 07/10/18 16:24 - Attending Attestation Discharge summary not needed - see progress note; pt will stay.
[2018-07-09] MEDS ORDERED: amLODIPine 5 MG TABLET PO SCH (16:30)
[2018-07-10] MEDS: Insulin LISPRO 300 UNITS/3 ML VIAL SQ SCH ×5 (00:05→21:53)
[2018-07-10] MEDS: *HR* Heparin 5,000 UNIT/ML VIAL SQ SCH ×4 (00:06→21:53)
[2018-07-10] MEDS: Valsartan 160 MG TABLET PO SCH (08:10)
[2018-07-10] MEDS: Metoprolol 100 MG TABLET PO SCH ×2 (08:10→21:52)
[2018-07-10] MEDS: Aspirin Enteric Coated 325 MG Tablet PO SCH (08:11)
[2018-07-10] MEDS: amLODIPine 5 MG TABLET PO SCH (08:11)
--- NOTE | 2018-07-10 09:22 | Internal Med Progress Note ---
<Eduin Huertas P - Last Filed: 07/10/18 16:42> Date of Encounter: 07/10/18 Time of Encounter: 09:00 - Assessment and plan (1) Cerebrovascular accident Current Visit: Yes Status: Acute Assessment and plan: The patient appears to have an ischemic infarct affecting posterior chris and adjacent to 4th ventricle and correlates well with his symptoms. He has multiple risk factors for CVA ie past smoker, male , age , HTN Given ASA 325mg sat and to continue the same dose Will appreciate neurology recommendation. He is on High dose statin Head and neck MRA angio , carotid doppler, Echo : No valvular lesions, no clot detected, MRA angio :no cerebral artery aneurysm, normal posterior cerebral circulation, 50% stenosis proximal left internal carotid artery in Carotid bifurcation right side , severe stenosis of proximal petrous segment of distal right internal carotid artery . Resumed antihypertensives , Metoprolol 150 Valsatran 320 and added Norvasc 10 mg and Hydralazine 25mg His BP is 185/89 , previous BP was 174/88 , latest record 159/89 Physical therapy and Occupational therapy evaluation Neurological symptoms monitoring regularly . Qualifiers: CVA mechanism: thrombosis Precerebral and cerebral artery: posterior cerebral artery Laterality of affected vessel: left Qualified Code(s): I63.332 - Cerebral infarction due to thrombosis of left posterior cerebral artery (2) Hypertension Current Visit: Yes Status: Chronic Assessment and plan: He is old case of HTN He was on Valsatran 325 mg and Metoprolol 150 mg , we added Amlodipine 10 mg and Hydralazine 25 mg TID Now he is on hold of anti -HTN medication to prevent cerebral hypopurfusion and cerebral edema, now we have resumed from yesterday . His BP is 185/98 previous BP was 174/88 , the latest record :159/89 Qualifiers: Hypertension type: essential hypertension Qualified Code(s): I10 - Essential (primary) hypertension (3) PVD (peripheral vascular disease) Current Visit: Yes Status: Chronic Assessment and plan: He is known case of Peripheral vascular disease He had gone bypass grafting for PVD in both limbs No symptoms during this visit (4) CAD (coronary artery disease) Current Visit: Yes Status: Chronic Assessment and plan: He is case of CAD He had undergone bypass surgery He is on high dose statin and aspirin Qualifiers: Coronary Disease-Associated Artery/Lesion type: bypass graft [place] vs. transplanted heart: [place] heart Associated angina: without angina Qualified Code(s): I25.810 - Atherosclerosis of coronary artery bypass graft(s) without angina pectoris - Subjective Interval history: Today is 4th day of admission. He is a 63 year old male with past medical history of diabetes, hypertension, PVD post bypass grafting in both lower extremities and CAD status post quadruple bypass presented in [facility] ED for chief complaints of dizziness and blurry vision , light headedness , difficulty to maintain body balance for last 4-5 days. He stated that his gait has been unsteady and his visual acuity has compromised . He occasionally used to have diplopia and blurry vision . He denies any associated chest pain, palpitation, dyspnea or diaphoresis, LOC, nausea , vomiting ,fever, limbs weakness or any other focal neurological deficit , no spinning things around him , any fall or trauma..He denies any h/o strokes and any focal neurological deficit today or in the past . He reports he was previously on rivaroxaban prior to 2014 and was discontinued after his cardiac bypass Neuro-consultation, Echo, [facility] . Echo : EF > 55% , no valvular lesion , no clot . Plain MRI head at ED shows : Punctate recent infarct in the posterior aspect of the Chris along the inferior margin of the 4th ventricle,multiple old infarcts,multifocal small-vessel ischemic changes are noted bilaterally.Carotid Doppler, MRI angio head and Neck : 50% stenosis Left ICA ,MRI angio: Normal appearance of the posterior circulation.Short segment severe stenosis of the proximal petrous segment of the distal right cervical internal carotid artery and no cerebral aneurysm identified. Today he is hemodynamically stable, symptomatically better , >80 % improvement since admission, Unsteady Gait is better , he can walk around the jalloh, coordination better dizziness and blurring of vision has been improved significantly .Vitals: 98.8 F, 96/ minutes, 185/98 .Labs: Na 138, K 4.0, GFR > 60, Hb 14.6, Creatinine 1.2 , BUN 23, glucose 192 ,HbA1C 9.0, TG 270, Cholesterol 149 . We are closely monitoring his blood pressure, appreciate neurologist recommendation. We started his blood pressure medication Valsatran 320 , Metoprolol 150 mg and amlodipine 10 mg and Hydralazine 25 mg Po TID . His previous BP was 159/89, - Constitutional Vitals: Temp Pulse Resp BP Pulse Ox 97.8 F 87 16 185/98 96 07/10/18 07:42 07/10/18 07:42 07/10/18 07:42 07/10/18 07:42 07/10/18 07:42 General appearance: Present: A&O X 3, pleasant, no acute distress, answers questions appropriately - Head Head exam: Present: atraumatic, normal inspection, normocephalic - Eye Eye exam: Present: normal appearance, PERRL - Neck Neck exam general surgery: Present: full ROM, supple - Respiratory Additional comments: Normal chest expansion, equal air entry , no rales/ crepitation wheezes - Cardiovascular Additional comments: Normal rate and rhythm, S1S2 no murmur, no rub or any added sound - GI/Abdominal Additional comments: soft warm , no tender , no organomegaly , BS + ,no rigidity and guarding - Extremities Exam Additional comments: No calf swelling, no edema , - Neurological Exam Neurological exam: Present: abnormal gait, alert, CN II-XII intact, oriented X3 , reflexes normal, no focal deficits, strengths equal and symetr throughout. Absent: speech deficit Internal Medicine: Result - Labs CBC & Chem 7: 07/08/18 03:51 07/08/18 03:51 - VTE Documentation of Mechanical Device: Intermittent pneumatic compression device Consult Discharge Plan - Plan Referrals: Willie Roque, LAST [employer]IPPER [Advanced Practice Nurse] - 07/12/18 7:00 am <Timi Johnson - Last Filed: 07/10/18 17:32> Date of Encounter: 07/10/18 - Assessment and plan (1) Cerebrovascular accident Current Visit: Yes Status: Acute Qualifiers: CVA mechanism: thrombosis Precerebral and cerebral artery: posterior cerebral artery Laterality of affected vessel: left Qualified Code(s): I63.332 - Cerebral infarction due to thrombosis of left posterior cerebral artery (2) Hypertension Current Visit: Yes Status: Chronic Qualifiers: Hypertension type: essential hypertension Qualified Code(s): I10 - Essential (primary) hypertension (3) PVD (peripheral vascular disease) Current Visit: Yes Status: Chronic (4) Hyperlipidemia Current Visit: Yes Status: Chronic Qualifiers: Hyperlipidemia type: unspecified Qualified Code(s): E78.5 - Hyperlipidemia , unspecified - Time Spent With Patient 25 - 35 minutes - Constitutional Vitals: Temp Pulse Resp BP Pulse Ox 97.7 F 68 18 159/89 97 07/10/18 16:24 07/10/18 16:24 07/10/18 16:24 07/10/18 16:24 07/10/18 16:24 Internal Medicine: Result - Labs CBC & Chem 7: 07/08/18 03:51 07/08/18 03:51 - Attending Attestation I SAW/EXAMINED AND EVALUATED THE PATIENT WITH THE RESIDENT ON THE DAY OF VISIT. THE CASE WAS DISCUSSED WITH HIM/HER. I AGREE WITH THE FINDINGS/PLAN, DOCUMENTED IN THE RESIDENT'S PROGRESS NOTE. THE DOCUMENT WAS EDITED BY ME TO CORRECT ERRORS AND ADD MISSING DATA.
[2018-07-10] MEDS: hydrALAZINE 25 MG TABLET PO SCH ×2 (14:17→21:53)
[2018-07-11] MEDS: *HR* Heparin 5,000 UNIT/ML VIAL SQ SCH ×3 (05:51→22:08)
[2018-07-11] MEDS: hydrALAZINE 25 MG TABLET PO SCH ×3 (05:51→22:06)
[2018-07-11] MEDS: Metoprolol 100 MG TABLET PO SCH ×2 (08:13→22:06)
[2018-07-11] MEDS: Aspirin Enteric Coated 325 MG Tablet PO SCH (08:13)
[2018-07-11] MEDS: Valsartan 160 MG TABLET PO SCH (08:14)
[2018-07-11] MEDS: amLODIPine 5 MG TABLET PO SCH (08:14)
[2018-07-11] MEDS: Insulin LISPRO 300 UNITS/3 ML VIAL SQ SCH ×3 (08:15→17:26)
[2018-07-11] MEDS ORDERED: hydrALAZINE 25 MG TABLET PO PRN (09:53)
[2018-07-11] MEDS ORDERED: hydrALAZINE 25 MG TABLET PO ONE (10:23)
[2018-07-11] MEDS ORDERED: hydrALAZINE 25 MG TABLET PO SCH (12:00)
--- NOTE | 2018-07-11 18:16 | Event Note ---
Date of Encounter: 07/11/18 Time of Encounter: 18:15 I have personally seen and examined this patient on 07/11/18 and reviewed her chart and labs, including medications, I have discussed plan of care with the resident physician, whose documentation reflect our plan of care. With the additions/exceptions set forth below. Patient is clinically stable and physical examination is unremarkable. Blood pressure remains uncontrolled, hydralazine has been increased. Continue to monitor. He stable to be discharged from a clinical standpoint when blood pressure is controlled. Follow-up with primary care physician. Rest of details as in the resident physicians documentation.
--- NOTE | 2018-07-11 19:24 | Event Note ---
<Eduin Huertas P - Last Filed: 07/11/18 19:25> Date of Encounter: 07/11/18 Time of Encounter: 01:00 Today is 5th Day of admission . He has already planned for discharge , but his BP fluctuates , so we are holding it to monitor and stabilize his BP before making discharge. Today he is hemodynamically stable,significantly improvement since admission, Unsteady Gait is better , he can walk around the jalloh,coordination is better, dizziness and blurring of vision has been improved significantly .Vitals: 98.8 F, 96/ minutes, 141/68 .Labs: Na 138, K 4.0 , GFR > 60, Hb 14.6, Creatinine 1.2 , BUN 23, glucose 192 ,HbA1C 9.0, TG 270, Cholesterol 149 . We are closely monitoring his blood pressure, appreciate neurologist recommendation. We started his blood pressure medication Valsatran 320 , Metoprolol 150 mg and amlodipine 10 mg and Hydralazine 50 mg Po TID . His previous BP was 182/89, his latest BP is 141/68 We are closely monitoring his blood pressure before discharging him. Now his BP is under control , so he will hopefully be discharged tomorrow . <PadminiTariq T - Last Filed: 07/11/18 19:56> Date of Encounter: 07/11/18 I have personally seen and examined this patient on 07/11/18 and reviewed her chart and labs, including medications, I have discussed plan of care with the resident physician, whose documentation reflect our plan of care. With the additions/exceptions set forth below. Patient is clinically stable and physical examination is unremarkable. Blood pressure remains uncontrolled, hydralazine has been increased. Continue to monitor. He stable to be discharged from a clinical standpoint when blood pressure is controlled. Follow-up with primary care physician. Rest of details as in the resident physicians documentation.
[2018-07-12] MEDS: Insulin LISPRO 300 UNITS/3 ML VIAL SQ SCH ×2 (00:15→10:01)
[2018-07-12] MEDS: *HR* Heparin 5,000 UNIT/ML VIAL SQ SCH (06:31)
[2018-07-12 07:22] VITALS: BP 144/83
--- NOTE | 2018-07-12 08:17 | Event Note ---
<Eduin Huertas P - Last Filed: 07/12/18 08:30> Date of Encounter: 07/12/18 Time of Encounter: 08:30 Today is 6th Day of admission . He has already planned for discharge , but his BP fluctuates , so we are holding it to monitor and stabilize his BP before making a plan for discharge . He had high level of dose for Metoprolol 150mg and valsatran 320 but BP was still uncontrolled . We added amlodipine 10 mg , but SBP couldnot come down below 170 and we again added Hydralazine 25 mg TID and increased the dose to 50 mg TID to decrease his systolic blood pressure around 160 . His latest BP and pulse recorded in his hospital stay for 24 hours are as follows : 169/79--159/79--146/72--159/79--144/83. His pulse for last 24 hours: 46-93-46-67-71. Today he is hemodynamically stable, was walking around his room ,reported significant improvement since admission, Unsteady Gait is much better , he can walk around the jalloh,gait and body balance is better, dizziness and blurring of vision has been improved significantly .Vitals: 98.8 F, sat 96% .Labs: Na 138, K 4.0, GFR > 60, Hb 14.6, Creatinine 1.2 , BUN 23, glucose 192 , HbA1C 9.0, TG 270, Cholesterol 149 . We are closely monitoring his blood pressure, appreciated and he will follow up with Neurology Physicians. We are closely monitoring his blood pressure before discharging him. Now his BP is better controlled , so he will hopefully be discharged today . He would follow up with Neurologist ( Neuro-stave planer tender) in [facility]. <Tariq Washington T - Last Filed: 07/12/18 13:48> Date of Encounter: 07/12/18 See my progress note documentation for the same day, other details as above
[2018-07-12] MEDS: Metoprolol 100 MG TABLET PO SCH (10:02)
[2018-07-12] MEDS: Valsartan 160 MG TABLET PO SCH (10:02)
[2018-07-12] MEDS: hydrALAZINE 25 MG TABLET PO SCH (10:03)
[2018-07-12] MEDS: amLODIPine 5 MG TABLET PO SCH (10:03)
[2018-07-12] MEDS: Aspirin Enteric Coated 325 MG Tablet PO SCH (10:03)
--- NOTE | 2018-07-12 13:45 | Internal Med Progress Note ---
Hospitalist Progress Note - Encounter Date of Encounter: 07/12/18 Time of Encounter: 09:00 - Subjective Interval History: Patient was seen and examined at the bedside. 63-year-old male with history of diabetes mellitus, peripheral arterial disease, diabetes hypertension who was admitted for an ischemic cerebrovascular accident, lacunar infarct. Patient is seen and examined at the bedside this morning, he has no neurologic deficits. Blood pressure was difficult.. Admission, however, the pressure is now controlled with Norvasc 10 mg, valsartan 320 mg, hydralazine 50 mg 3 times a day , metoprolol He is asymptomatic, ambulatory and stable to be discharged home today. - Exam Vitals: Temp Pulse Resp BP Pulse Ox 97.9 F 71 16 144/83 95 07/12/18 07:21 07/12/18 07:21 07/12/18 07:21 07/12/18 07:21 07/12/18 07:21 Exam: Vitals: Reviewed General: Well developed white male sitting comfortably in bed in no acute distress Skin: Warm and supple HEENT: Moist mucous membranes. No conjunctivae pallor. Neck: No lymphadenopathy. No JVD. No carotid bruits. No palpable thyroid. Chest: Normal thoracic expansion. Normal breath sounds. Clear to auscultation. Heart: Normal S1 & S2; rhythmic. No rubs or murmurs. Abdomen: Non-distended, soft and non-tender to palpation. No peritoneal reaction. Liver is normal in size. Spleen is not palpable. Extremities: No clubbing, cyanosis or edema. No calf tenderness. Normal distal pulses. Neurological: Awake, alert and oriented to person, place and time. No focal deficits. Strength 5/5 in all 4 extremities and sensation intact. No gait instability Psych: Affect appropriate. - Assessment and Plan (1) Hypertension Current Visit: Yes Status: Chronic Assessment and Plan: Discharge home on current medications (2) Hyperlipidemia Current Visit: Yes Status: Chronic Assessment and Plan: Continue Crestor (3) Cerebrovascular accident Current Visit: Yes Status: Acute Assessment and Plan: Continue aspirin, Crestor, no neurologic deficits. (4) PVD (peripheral vascular disease) Current Visit: Yes Status: Chronic Assessment and Plan: Continue aspirin. - Time Spent with Patient Total time spent is greater than 50% in coordination of care (as documented) at patient's floor/unit and/or counseling patient: Plan of Care Discussed with: patient Internal Medicine: Result - Labs CBC & Chem 7: 07/08/18 03:51 07/08/18 03:51 - VTE Documentation of Mechanical Device: Intermittent pneumatic compression device Consult Discharge Plan - Plan Instructions: Diabetes Mellitus Type 2 in Adults (DC), Peripheral Vascular Disorders (DC), Ischemic Stroke (DC), Chronic Hypertension (DC) Referrals: Willie Roque LOC[employer] G[employer]ERNMENT LEGISLATOR [Advanced Practice Nurse] - 07/12/18 7:00 am Prescriptions: amLODIPine [Norvasc] 10 mg PO DAILY 30 Days #30 tablet Hydralazine HCl 50 mg PO 1-3XD #90 tablet (1) Hypertension Qualifiers: Hypertension type: essential hypertension Qualified Code(s): I10 - Essential (primary) hypertension (2) Hyperlipidemia Qualifiers: Hyperlipidemia type: unspecified Qualified Code(s): E78.5 - Hyperlipidemia, unspecified (3) Cerebrovascular accident Qualifiers: CVA mechanism: thrombosis Precerebral and cerebral artery: posterior cerebral artery Laterality of affected vessel: left Qualified Code(s): I63.332 - Cerebral infarction due to thrombosis of left posterior cerebral artery
== END 2018-07-12 14:06 | disposition home or self-care (01) | DRG 66 ==
LOC: 2NENU 14:51 → EMEROOARM 14:51 → 2NENU 20:16 → SUATTDRO 20:58
PROVIDERS: ADMIT Internal Medicine; ATTEND Internal Medicine

== ENCOUNTER 2019-12-03 10:47 | Inpatient (IN) ==
[~2019-12-03 10:47] MED LIST: Gabapentin 300 MG CAPSULE PO ONE; Vancomycin 1,000 MG, Sodium Chloride IRRigation 1,000 ML IR ONE
[2019-12-03] MEDS ORDERED: Ondansetron 4 MG/2 ML VIAL IVP PRN ×2 (11:34→17:33)
[2019-12-03] MEDS ORDERED: *HR* OxyCODONE Immed Rel 5 MG TABLET PO PRN ×2 (11:34→17:33)
[2019-12-03] MEDS ORDERED: *HR* Promethazine 25 MG/ML VIAL IVP PRN (11:34)
[2019-12-03] MEDS ORDERED: *HR* Labetalol 20 MG/4 ML SYRINGE IVP PRN (11:34)
[2019-12-03] MEDS ORDERED: *HR* HYDROmorphone (PF) 1 MG/ML SYRINGE IVP PRN (11:34)
[2019-12-03] MEDS ORDERED: CeFAZolin Syr 2,000MG/20 ML 2,000 MG/20 ML SYRINGE IVPB ONE (11:46)
[2019-12-03] MEDS ORDERED: Ringers Solution, Lactated 1,000 ML IVC SCH ×2 (12:00)
[2019-12-03] MEDS ORDERED: *HR* Midazolam HCl 2 MG/2 ML VIAL ONE (12:16)
[2019-12-03] MEDS ORDERED: *HR* Propofol 200 MG/20 ML VIAL IVP ONE (12:16)
[2019-12-03] MEDS ORDERED: *HR* FentaNYL (PF) 100 MCG/2 ML VIAL ONE (12:16)
[2019-12-03] MEDS ORDERED: NiCARdipine 2.5 MG/10 ML Syringe IVPB ONE (12:17)
[2019-12-03] MEDS ORDERED: Lidocaine -MPF 2% 2 ML VIAL ONE (12:17)
[2019-12-03] MEDS ORDERED: Ondansetron 4 MG/2 ML VIAL ONE (12:17)
[2019-12-03] MEDS ORDERED: Dexamethasone 4 MG/ML VIAL ONE (12:17)
[2019-12-03] MEDS ORDERED: Lidocaine HCL 4 ML Topical Solution (Laryng-O-Jet Kit Sterile Pak) TP ONE (12:17)
[2019-12-03] MEDS ORDERED: Heparin 1,000 UNITS/500 mL 500 ML ONE ×2 (12:21→12:23)
[2019-12-03] MEDS ORDERED: *HR* Heparin 5,000 UNIT/ML VIAL ONE (12:27)
[2019-12-03] MEDS ORDERED: *HR* PHENYLEPHRINE 1,000 MCG/10 ML SYRINGE IVP ONE (13:31)
[2019-12-03] MEDS ORDERED: *HR* Phenylephrine 10 MG/ML VIAL ONE (13:52)
[2019-12-03] MEDS ORDERED: *HR* HYDROMORPHONE 2 MG/ML VIAL ONE (14:27)
[2019-12-03] MEDS ORDERED: *HR* Rocuronium Bromide 50 MG/5 ML VIAL ONE (14:48)
[2019-12-03] MEDS ORDERED: Protamine Sulfate 50 MG/5 ML VIAL IVP ONE (15:31)
[2019-12-03] MEDS ORDERED: Neostigmine Methylsulfate 3 MG/3 ML SYRINGE ONE (15:46)
[2019-12-03] MEDS ORDERED: *HR* HYDROcodone/Acet 5/325 mg TABLET PO PRN (17:33)
[2019-12-03] MEDS ORDERED: Dextrose Gel 15 GM/37.5 ML TUBE PO PRN ×2 (17:33)
[2019-12-03] MEDS ORDERED: 0.9 % Sodium Chloride 1,000 ML IVC SCH (17:33)
[2019-12-03] MEDS ORDERED: *HR* Dextrose 50 % in Water (Syg) 50 ML SYRINGE IVP PRN (17:33)
[2019-12-03] MEDS ORDERED: Naloxone 0.4 MG/ML INJ IVP PRN (17:33)
[2019-12-03] MEDS ORDERED: D5% in Water 1,000 ML IVC PRN (17:33)
[2019-12-03] MEDS ORDERED: Acetaminophen 325 MG TABLET PO PRN ×2 (17:33)
[2019-12-03] MEDS: *HR* Metoprolol 5 MG/5 ML VIAL IVP SCH ×2 (18:44→23:50)
[2019-12-03] MEDS: Insulin LISPRO 300 UNITS/3 ML VIAL SQ SCH (20:43)
[2019-12-04] MEDS: *HR* Metoprolol 5 MG/5 ML VIAL IVP SCH (04:32)
[2019-12-04] MEDS: *HR* HYDROcodone/Acet 5/325 mg TABLET PO PRN ×2 (04:32→16:52)
[2019-12-04] MEDS: *HR* Heparin 5,000 UNIT/ML VIAL SQ SCH ×2 (04:32→17:40)
[2019-12-04] MEDS ORDERED: *HR* Heparin 5,000 UNIT/ML VIAL SQ SCH (06:00)
[2019-12-04 06:01] LABS: Basophils % 0.4 %; Eosinophils % 0.2 %; Hematocrit 37.7 % (37.5-50.1); Hemoglobin 12.4 g/dL (12.9-16.9); Immature Granulocytes % 0.4 % (0-4); Lymphocytes # 1.2 K/mcL (0.6-4.6); Mean Corpuscular HGB Conc 32.9 g/dL (31.6-35.5); Mean Corpuscular Hemoglobin 27.4 pg (28.0-33.3); Mean Corpuscular Volume 83.4 fL (83.0-100.0); Mean Platelet Volume 11.1 fL (9.4-12.4); Monocytes # 0.7 K/mcL (0.0-1.3); Monocytes % 8.9 %; Neutrophils # 6.2 K/mcL (1.6-8.9); Platelet Count 246 K/mcL (140-400); Red Blood Count 4.52 M/mcL (4.19-5.50); Red Cell Distribution Width 12.9 % (11.5-14.5); Segmented Neutrophils % 75.1 %; White Blood Count 8.2 K/mcL (4.3-11.1)
[2019-12-04 06:09] LABS: BUN/Creatinine Ratio 16 (6-26); Blood Urea Nitrogen 19 mg/dL (8-23); Calcium 8.6 mg/dL (8.6-10.3); Carbon Dioxide 23 mEq/L (23-29); Chloride 103 mEq/L (98-107); Glucose 130 mg/dL (70-105); Osmolality,Calculated 288 (280-300); Potassium 4.6 mEq/L (3.5-5.1); Sodium 137 mEq/L (136-145); eGFR For African Americans > 60 (> 60); eGFR For Non-African Americans 60 (> 60)
[2019-12-04] MEDS: Aspirin Enteric Coated 81 MG Tablet PO SCH (07:11)
[2019-12-04] MEDS: Insulin LISPRO 300 UNITS/3 ML VIAL SQ SCH ×4 (07:48→20:36)
[2019-12-04] MEDS ORDERED: Metoprolol 100 MG TABLET PO SCH (09:00)
[2019-12-04] MEDS: *HR* OxyCODONE Immed Rel 5 MG TABLET PO PRN ×2 (11:12→20:52)
[2019-12-04] MEDS ORDERED: 0.9 % Sodium Chloride 500 ML IVC ONE (15:28)
[2019-12-04] MEDS: *HR* Labetalol 20 MG/4 ML SYRINGE IVP PRN (17:45)
[2019-12-04] MEDS: Metoprolol 100 MG TABLET PO SCH (18:59)
[2019-12-05] MEDS: *HR* Heparin 5,000 UNIT/ML VIAL SQ SCH (04:42)
[2019-12-05] MEDS: *HR* Labetalol 20 MG/4 ML SYRINGE IVP PRN ×2 (04:46→05:57)
[2019-12-05 05:10] VITALS: BP 162/72
[2019-12-05] MEDS: Metoprolol 100 MG TABLET PO SCH (06:17)
[2019-12-05] MEDS: Aspirin Enteric Coated 81 MG Tablet PO SCH (08:03)
[2019-12-05] MEDS: Insulin LISPRO 300 UNITS/3 ML VIAL SQ SCH (08:04)
[2019-12-05] MEDS: *HR* HYDROcodone/Acet 5/325 mg TABLET PO PRN (09:23)
== END 2019-12-05 10:44 | disposition home or self-care (01) | DRG 253 ==
LOC: SAMDAY 10:47 → 2NNU 17:32
PROVIDERS: ADMIT Surgery; ATTEND Surgery

== ENCOUNTER 2021-07-29 21:51 | Inpatient (IN) ==
[2021-07-30] MEDS ORDERED: Naloxone 0.4 MG/ML INJ IVP PRN (05:05)
[2021-07-30] MEDS ORDERED: Acetaminophen 325 MG TABLET PO PRN (05:11)
[2021-07-30] MEDS ORDERED: Ondansetron 4 MG/2 ML VIAL IVP PRN (05:11)
[2021-07-30] MEDS ORDERED: *HR* Dextrose 50 % in Water (Vial) 50 ML VIAL IVP PRN (05:44)
[2021-07-30] MEDS ORDERED: Dextrose Gel 15 GM/37.5 ML TUBE PO PRN ×2 (05:44)
[2021-07-30] MEDS ORDERED: D5% in Water 1,000 ML IVC PRN (05:44)
[2021-07-30] MEDS ORDERED: Insulin LISPRO 300 UNITS/3 ML VIAL SUBQ SCH (06:00)
[2021-07-30] MEDS ORDERED: Perflutren Lipid Microsphere 1.3 ML in 0.9 % Sodium Chloride 8.7 ML IVP PRN (06:43)
[2021-07-30 06:51] LABS: Hematocrit 49.3 % (37.5-50.1); Mean Corpuscular HGB Conc 32.5 g/dL (31.6-35.5); Mean Corpuscular Hemoglobin 28.4 pg (28.0-33.3); Mean Corpuscular Volume 87.6 fL (83.0-100.0); Mean Platelet Volume 11.5 fL (9.4-12.4); Platelet Count 162 K/mcL (140-400); Red Blood Count 5.63 M/mcL (4.19-5.50); Red Cell Distribution Width 13.7 % (11.5-14.5); White Blood Count 6.5 K/mcL (4.3-11.1)
[2021-07-30 07:17] LABS: Chol/HDL Ratio 6.1 (0-4.9); Magnesium 1.8 mg/dL (1.6-2.6)
[2021-07-30 07:18] LABS: Albumin 3.4 g/dL (3.5-5.7); Albumin/Globulin Ratio 1.3 (1.1-2.2); Calcium 9.1 mg/dL (8.6-10.3); Globulin 2.7 g/dL (2.4-3.5); Potassium 3.8 mEq/L (3.5-5.1); Total Protein 6.1 g/dL (6.4-8.9)
[2021-07-30] MEDS: Insulin LISPRO 300 UNITS/3 ML VIAL SUBQ SCH ×3 (07:40→16:11)
[2021-07-30 08:17] LABS: Prothrombin Time 11.9 Seconds (9.4-12.1)
[2021-07-30] MEDS ORDERED: Aspirin Enteric Coated 81 MG Tablet PO SCH (09:00)
[2021-07-30 12:33] LABS: Estimated Average Glucose 192 mg/dl; Hemoglobin A1C 8.3 %
[2021-07-31] MEDS: Insulin LISPRO 300 UNITS/3 ML VIAL SUBQ SCH ×5 (07:52→21:52)
[2021-07-31] MEDS: Aspirin 325 MG TABLET PO SCH (08:17)
[2021-08-01 02:19] LABS: Hematocrit 46.7 % (37.5-50.1); Hemoglobin 15.2 g/dL (12.9-16.9); Mean Corpuscular HGB Conc 32.5 g/dL (31.6-35.5); Mean Corpuscular Hemoglobin 28.5 pg (28.0-33.3); Mean Corpuscular Volume 87.6 fL (83.0-100.0); Mean Platelet Volume 11.5 fL (9.4-12.4); Platelet Count 149 K/mcL (140-400); Red Blood Count 5.33 M/mcL (4.19-5.50); Red Cell Distribution Width 13.8 % (11.5-14.5); White Blood Count 5.4 K/mcL (4.3-11.1)
[2021-08-01 02:30] LABS: Potassium 3.6 mEq/L (3.5-5.1)
[2021-08-01] MEDS: Aspirin 325 MG TABLET PO SCH (07:56)
[2021-08-01] MEDS: Metoprolol 100 MG TABLET PO SCH ×2 (07:56→20:48)
[2021-08-01] MEDS: Insulin LISPRO 300 UNITS/3 ML VIAL SUBQ SCH ×4 (09:43→20:50)
[2021-08-01] MEDS ORDERED: *HR* Rivaroxaban 10 MG TABLET PO SCH (17:00)
[2021-08-02 02:49] LABS: Hematocrit 47.4 % (37.5-50.1); Hemoglobin 15.4 g/dL (12.9-16.9); Mean Corpuscular HGB Conc 32.5 g/dL (31.6-35.5); Mean Corpuscular Hemoglobin 28.3 pg (28.0-33.3); Mean Corpuscular Volume 87.1 fL (83.0-100.0); Mean Platelet Volume 11.5 fL (9.4-12.4); Platelet Count 153 K/mcL (140-400); Red Blood Count 5.44 M/mcL (4.19-5.50); Red Cell Distribution Width 13.7 % (11.5-14.5); White Blood Count 5.7 K/mcL (4.3-11.1)
[2021-08-02 03:00] LABS: Calcium 8.6 mg/dL (8.6-10.3); Potassium 3.8 mEq/L (3.5-5.1)
[2021-08-02 07:21] VITALS: TEMP 97.6
[2021-08-02] MEDS: Insulin LISPRO 300 UNITS/3 ML VIAL SUBQ SCH ×2 (07:35→12:26)
[2021-08-02] MEDS: Metoprolol 100 MG TABLET PO SCH (08:45)
[2021-08-02] MEDS ORDERED: amLODIPine 5 MG TABLET PO SCH (12:00)
[2021-08-02 13:13] LABS: Adenovirus Not Detected (Not Detect); Bordetella Pertussis Not Detected (Not Detect); Chlamydophila pneumoniae Not Detected (Not Detect); Coronavirus 229E Not Detected (Not Detect); Coronavirus HKU1 Not Detected (Not Detect); Coronavirus NL63 Not Detected (Not Detect); Coronavirus OC43 Not Detected (Not Detect); Human Metapneumovirus Not Detected (Not Detect); Human Rhinovirus/Enterovirus Not Detected (Not Detect); Influenza A Subtype 2009 H1 Not Detected (Not Detect); Influenza B Not Detected (Not Detect); Mycoplasma pneumoniae Not Detected (Not Detect); Parainfluenza Virus 1 Not Detected (Not Detect); Parainfluenza Virus 2 Not Detected (Not Detect); Parainfluenza Virus 3 Not Detected (Not Detect); Parainfluenza Virus 4 Not Detected (Not Detect); Respiratory Syncytial Virus Not Detected (Not Detect); SARS-CoV-2 Not Detected (Not Detect)
[2021-08-02 15:42] VITALS: BP 154/74; PULSE 69; O2SAT 96
== END 2021-08-02 17:09 | disposition other institution (70) | DRG 65 ==
LOC: 3NENU → SUATTDRO 07-30 02:45
PROVIDERS: ADMIT Student in an Organized Health Care Education/Training Program; ATTEND Family Medicine

== ENCOUNTER 2022-01-11 00:21 | Inpatient (IN) ==
[2022-01-11] MEDS ORDERED: Acetaminophen 325 MG TABLET PO PRN ×2 (04:53→21:14)
[2022-01-11] MEDS ORDERED: Naloxone 0.4 MG/ML INJ IVP PRN ×2 (04:53→21:14)
[2022-01-11] MEDS ORDERED: Ondansetron 4 MG/2 ML VIAL IVP PRN ×2 (04:53→21:14)
[2022-01-11] MEDS ORDERED: 0.9 % Sodium Chloride 1,000 ML IVC SCH (05:00)
[2022-01-11] MEDS ORDERED: D5% in Water 1,000 ML IVC PRN ×2 (05:15→21:14)
[2022-01-11] MEDS ORDERED: *HR* Dextrose 50 % in Water (Syg) 50 ML SYRINGE IVP PRN ×2 (05:15→21:14)
[2022-01-11] MEDS ORDERED: Dextrose Gel 15 GM/37.5 ML TUBE PO PRN ×4 (05:15→21:14)
[2022-01-11 05:38] LABS: Basophils % 0.3 %; Eosinophils % 0.2 %; Hematocrit 36.4 % (37.5-50.1); Hemoglobin 11.5 g/dL (12.9-16.9); Immature Granulocytes % 0.7 % (0-4); Lymphocytes # 0.6 K/mcL (0.6-4.6); Lymphocytes % 5.1 %; Mean Corpuscular HGB Conc 31.6 g/dL (31.6-35.5); Mean Corpuscular Hemoglobin 27.6 pg (28.0-33.3); Mean Corpuscular Volume 87.3 fL (83.0-100.0); Monocytes # 0.7 K/mcL (0.0-1.3); Neutrophils # 10.4 K/mcL (1.6-8.9); Platelet Count 223 K/mcL (140-400); Red Blood Count 4.17 M/mcL (4.19-5.50); Red Cell Distribution Width 13.2 % (11.5-14.5); Segmented Neutrophils % 87.7 %; White Blood Count 11.9 K/mcL (4.3-11.1)
[2022-01-11 05:46] LABS: INR 1.4; Prothrombin Time 16.1 Seconds (9.4-12.1)
[2022-01-11 05:49] LABS: Activated Partial Thrombo Time 43.6 Seconds (26.0-36.0)
[2022-01-11] MEDS: Insulin LISPRO 300 UNITS/3 ML VIAL SUBQ SCH ×3 (05:57→21:09)
[2022-01-11 05:59] LABS: Albumin 3.2 g/dL (3.5-5.7); Albumin/Globulin Ratio 0.8 (1.1-2.2); Bilirubin,Total 0.7 mg/dL (0.3-1.0); Calcium 8.9 mg/dL (8.6-10.3); Chol/HDL Ratio 2.8 (0-4.9); Globulin 3.8 g/dL (2.4-3.5); Potassium 3.5 mEq/L (3.5-5.1)
[2022-01-11 06:13] LABS: Bilirubin,Urine Negative (Negative); Blood,Urine Small (Negative); Clarity,Urine Clear (Clear); Color,Urine Light-Yellow (Yellow); Glucose,Urine (UA) 100 mg/dL (Normal); Ketones,Urine Negative (Negative); Leukocyte Esterase,Urine Negative (Negative); Nitrite,Urine Negative (Negative); PH,Urine 6.5 pH Units (5.0-8.0); Protein,Urine >=300 mg/dL (Neg-Trace); Specific Gravity,Urine > 1.030 (1.010-1.025); Squamous Epithelial Cell,Urine Few per hpf (None-Few); Urobilinogen,Urine Normal (Normal); WBC,Urine 0-3 per hpf (0-3)
[2022-01-11 06:13] LABS: Thyroid Stimulating Hormone 0.718 mcIU/mL (0.340-5.600)
[2022-01-11 07:03] LABS: Estimated Average Glucose 163 mg/dl; Hemoglobin A1C 7.3 %
[2022-01-11] MEDS: Piperacillin/Tazobactam 3.375 GM in 0.9 % Sodium Chloride Mini Bag 100 ML IVPB SCH ×2 (09:30→15:28)
[2022-01-11] MEDS ORDERED: amLODIPine 5 MG TABLET PO SCH (09:45)
[2022-01-11] MEDS: Metoprolol 100 MG TABLET PO SCH (10:02)
[2022-01-11] MEDS ORDERED: *HR* Heparin 5,000 UNIT/ML VIAL SQ SCH (14:00)
[2022-01-11] MEDS ORDERED: Isovue-370 500 ML BOTTLE IVP ONE (15:17)
[2022-01-11] MEDS ORDERED: *HR* Propofol 200 MG/20 ML VIAL IVP ONE (16:41)
[2022-01-11] MEDS ORDERED: Lidocaine -MPF 2% 5 ML VIAL ONE (16:41)
[2022-01-11] MEDS ORDERED: *HR* FentaNYL (PF) 100 MCG/2 ML VIAL ONE (16:41)
[2022-01-11] MEDS ORDERED: *HR* Midazolam HCl 2 MG/2 ML VIAL ONE (16:41)
[2022-01-11] MEDS ORDERED: Ondansetron 4 MG/2 ML VIAL ONE (16:44)
[2022-01-11] MEDS ORDERED: *HR* Dextrose 50 % in Water (Vial) 50 ML VIAL ONE (17:28)
[2022-01-11] MEDS ORDERED: *HR* Phenylephrine 10 MG/ML VIAL ONE (18:05)
[2022-01-11] MEDS ORDERED: *HR* HYDROMORPHONE 2 MG/ML VIAL ONE (18:17)
[2022-01-11] MEDS ORDERED: Vancomycin 1,250 MG/262.5 ML IV.SOLN IVPB SCH (22:00)
[2022-01-11] MEDS: *HR* Heparin 5,000 UNIT/ML VIAL SQ SCH (22:10)
[2022-01-11] MEDS: Vancomycin 1,250 MG/262.5 ML IV.SOLN IVPB SCH (22:10)
[2022-01-12] MEDS: Insulin LISPRO 300 UNITS/3 ML VIAL SUBQ SCH ×4 (00:04→17:45)
[2022-01-12] MEDS: Piperacillin/Tazobactam 3.375 GM in 0.9 % Sodium Chloride Mini Bag 100 ML IVPB SCH ×4 (00:24→23:29)
[2022-01-12 01:22] LABS: Basophils % 0.1 %; Hematocrit 34.2 % (37.5-50.1); Hemoglobin 10.9 g/dL (12.9-16.9); Immature Granulocytes % 0.5 % (0-4); Lymphocytes # 0.3 K/mcL (0.6-4.6); Mean Corpuscular HGB Conc 31.9 g/dL (31.6-35.5); Mean Corpuscular Hemoglobin 28.2 pg (28.0-33.3); Mean Corpuscular Volume 88.4 fL (83.0-100.0); Monocytes # 0.2 K/mcL (0.0-1.3); Monocytes % 2.3 %; Neutrophils # 9.6 K/mcL (1.6-8.9); Platelet Count 229 K/mcL (140-400); Red Blood Count 3.87 M/mcL (4.19-5.50); Red Cell Distribution Width 13.5 % (11.5-14.5); Segmented Neutrophils % 94.1 %; White Blood Count 10.2 K/mcL (4.3-11.1)
[2022-01-12] MEDS ORDERED: *HR* HYDROmorphone (PF) 1 MG/ML SYRINGE IVP ONE (01:25)
[2022-01-12 01:44] LABS: Calcium 8.6 mg/dL (8.6-10.3); Potassium 4.1 mEq/L (3.5-5.1)
[2022-01-12] MEDS: *HR* Heparin 5,000 UNIT/ML VIAL SQ SCH ×3 (05:55→20:55)
[2022-01-12] MEDS: Metoprolol 100 MG TABLET PO SCH ×3 (07:29→20:55)
[2022-01-12] MEDS: amLODIPine 5 MG TABLET PO SCH (08:05)
[2022-01-12] MEDS: Vancomycin 1,250 MG/262.5 ML IV.SOLN IVPB SCH (21:47)
[2022-01-13] MEDS: Insulin LISPRO 300 UNITS/3 ML VIAL SUBQ SCH ×5 (00:06→23:34)
[2022-01-13 02:32] LABS: Basophils % 0.2 %; Eosinophils # 0.1 K/mcL (0.0-0.6); Eosinophils % 0.6 %; Hematocrit 31.8 % (37.5-50.1); Hemoglobin 10.4 g/dL (12.9-16.9); Immature Granulocytes % 0.4 % (0-4); Lymphocytes # 0.8 K/mcL (0.6-4.6); Lymphocytes % 6.3 %; Mean Corpuscular HGB Conc 32.7 g/dL (31.6-35.5); Mean Corpuscular Volume 85.7 fL (83.0-100.0); Monocytes # 0.7 K/mcL (0.0-1.3); Neutrophils # 10.6 K/mcL (1.6-8.9); Platelet Count 238 K/mcL (140-400); Red Blood Count 3.71 M/mcL (4.19-5.50); Red Cell Distribution Width 13.4 % (11.5-14.5); Segmented Neutrophils % 86.5 %; White Blood Count 12.2 K/mcL (4.3-11.1)
[2022-01-13 02:48] LABS: Calcium 8.7 mg/dL (8.6-10.3); Potassium 3.7 mEq/L (3.5-5.1)
[2022-01-13] MEDS: *HR* Heparin 5,000 UNIT/ML VIAL SQ SCH ×3 (05:05→20:52)
[2022-01-13] MEDS: Metoprolol 100 MG TABLET PO SCH ×2 (07:54→20:52)
[2022-01-13] MEDS: amLODIPine 5 MG TABLET PO SCH (07:54)
[2022-01-13] MEDS ORDERED: *HR* Rocuronium Bromide 50 MG/5 ML VIAL ONE ×2 (07:55→10:58)
[2022-01-13] MEDS ORDERED: *HR* Magnesium Sulfate 1 GM/2 ML VIAL ONE (07:55)
[2022-01-13] MEDS ORDERED: Ondansetron 4 MG/2 ML VIAL ONE (07:55)
[2022-01-13] MEDS ORDERED: Ketamine HCL *QUVA* 50mg (1mL) SYRINGE ONE (07:55)
[2022-01-13] MEDS ORDERED: *HR* FentaNYL (PF) 100 MCG/2 ML VIAL ONE (07:56)
[2022-01-13] MEDS ORDERED: *HR* Midazolam HCl 2 MG/2 ML VIAL ONE (07:56)
[2022-01-13] MEDS ORDERED: *HR* Propofol 200 MG/20 ML VIAL IVP ONE (07:56)
[2022-01-13] MEDS ORDERED: *HR* Phenylephrine 10 MG/ML VIAL ONE (08:08)
[2022-01-13] MEDS ORDERED: Heparin 1,000 UNITS/500 mL 500 ML ONE (08:11)
[2022-01-13] MEDS ORDERED: Bupivacaine-MPF 0.25% 10 ML VIAL ONE (08:11)
[2022-01-13] MEDS ORDERED: Vancomycin 1,000 MG VIAL ONE (08:11)
[2022-01-13] MEDS ORDERED: *HR* HYDROmorphone PF 0.5 MG/0.5 ML SYRINGE IVP PRN (08:55)
[2022-01-13] MEDS ORDERED: *HR* Meperidine 25 MG/ML SYRINGE IVP PRN (08:55)
[2022-01-13] MEDS ORDERED: Albuterol 2.5 MG/3 ML NEBULIZER IH PRN ×2 (08:55→16:41)
[2022-01-13] MEDS ORDERED: Ondansetron 4 MG/2 ML VIAL IVP PRN ×2 (08:55→16:41)
[2022-01-13] MEDS ORDERED: Vancomycin 1,000 MG, Sodium Chloride IRRigation 1,000 ML IR ONE (09:30)
[2022-01-13] MEDS: Piperacillin/Tazobactam 3.375 GM in 0.9 % Sodium Chloride Mini Bag 100 ML IVPB SCH ×3 (10:08→18:15)
[2022-01-13] MEDS ORDERED: Acetaminophen IV 500 MG/50 ML BAG IVPB ONE (10:36)
[2022-01-13] MEDS ORDERED: Acetaminophen IV 1,000 MG/100 ML BAG IVPB ONE (10:36)
[2022-01-13] MEDS ORDERED: *HR* Heparin 5,000 UNIT/ML VIAL ONE (10:39)
[2022-01-13] MEDS ORDERED: Albumin Human 5% 25.0 GM/500 ML IV.SOLN ONE (11:08)
[2022-01-13] MEDS ORDERED: Sugammadex Sodium 200 MG/2 ML VIAL IV ONE (11:48)
[2022-01-13] MEDS ORDERED: *HR* HYDROMORPHONE 2 MG/ML VIAL ONE (11:55)
[2022-01-13] MEDS ORDERED: Dextrose Gel 15 GM/37.5 ML TUBE PO PRN ×2 (16:41)
[2022-01-13] MEDS ORDERED: Naloxone 0.4 MG/ML INJ IVP PRN (16:41)
[2022-01-13] MEDS ORDERED: D5% in Water 1,000 ML IVC PRN (16:41)
[2022-01-13] MEDS ORDERED: Acetaminophen 325 MG TABLET PO PRN (16:41)
[2022-01-13] MEDS ORDERED: *HR* Dextrose 50 % in Water (Syg) 50 ML SYRINGE IVP PRN (16:41)
[2022-01-13 18:25] VITALS: O2SAT 100
[2022-01-13] MEDS ORDERED: Vancomycin 1,250 MG/262.5 ML IV.SOLN IVPB SCH (22:00)
[2022-01-14] MEDS: Piperacillin/Tazobactam 3.375 GM in 0.9 % Sodium Chloride Mini Bag 100 ML IVPB SCH ×2 (02:35→09:35)
[2022-01-14 02:45] LABS: Basophils % 0.1 %; Hematocrit 29.1 % (37.5-50.1); Hemoglobin 9.3 g/dL (12.9-16.9); Immature Granulocytes % 0.5 % (0-4); Lymphocytes # 0.4 K/mcL (0.6-4.6); Lymphocytes % 4.1 %; Mean Corpuscular Hemoglobin 27.3 pg (28.0-33.3); Mean Corpuscular Volume 85.3 fL (83.0-100.0); Mean Platelet Volume 10.3 fL (9.4-12.4); Monocytes # 0.5 K/mcL (0.0-1.3); Monocytes % 5.1 %; Neutrophils # 9.6 K/mcL (1.6-8.9); Platelet Count 210 K/mcL (140-400); Red Blood Count 3.41 M/mcL (4.19-5.50); Red Cell Distribution Width 13.4 % (11.5-14.5); Segmented Neutrophils % 90.2 %; White Blood Count 10.7 K/mcL (4.3-11.1)
[2022-01-14 03:04] LABS: Calcium 8.2 mg/dL (8.6-10.3); Magnesium 2.5 mg/dL (1.6-2.6); Potassium 3.7 mEq/L (3.5-5.1)
[2022-01-14] MEDS: *HR* Heparin 5,000 UNIT/ML VIAL SQ SCH (05:41)
[2022-01-14] MEDS: Insulin LISPRO 300 UNITS/3 ML VIAL SUBQ SCH (05:43)
[2022-01-14 07:21] VITALS: BP 156/67; PULSE 69; TEMP 97.9
[2022-01-14] MEDS ORDERED: Aspirin Enteric Coated 81 MG Tablet PO SCH (09:00)
[2022-01-14] MEDS ORDERED: amLODIPine 5 MG TABLET PO SCH (09:00)
[2022-01-14] MEDS: Metoprolol 100 MG TABLET PO SCH (09:32)
== END 2022-01-14 11:24 | disposition home or self-care (01) | DRG 853 ==
LOC: 3NENU → SUATTDRO 04:10
PROVIDERS: ADMIT Student in an Organized Health Care Education/Training Program; ATTEND Family Medicine

== ENCOUNTER 2022-04-19 08:16 | Inpatient (IN) ==
[2022-04-19 09:53] LABS: Basophils % 0.5 %; Eosinophils # 0.2 K/mcL (0.0-0.6); Eosinophils % 3.1 %; Hematocrit 33.9 % (37.5-50.1); Hemoglobin 10.4 g/dL (12.9-16.9); Immature Granulocytes % 0.3 % (0-4); Lymphocytes # 1.3 K/mcL (0.6-4.6); Lymphocytes % 17.1 %; Mean Corpuscular HGB Conc 30.7 g/dL (31.6-35.5); Mean Corpuscular Hemoglobin 26.4 pg (28.0-33.3); Mean Platelet Volume 11.2 fL (9.4-12.4); Monocytes # 0.7 K/mcL (0.0-1.3); Neutrophils # 5.1 K/mcL (1.6-8.9); Platelet Count 179 K/mcL (140-400); Red Blood Count 3.94 M/mcL (4.19-5.50); Red Cell Distribution Width 14.9 % (11.5-14.5); White Blood Count 7.3 K/mcL (4.3-11.1)
[2022-04-19 10:10] LABS: BUN/Creatinine Ratio 14 (6-26); Blood Urea Nitrogen 20 mg/dL (8-23); Calcium 9.3 mg/dL (8.6-10.3); Carbon Dioxide 28 mEq/L (23-29); Chloride 103 mEq/L (98-107); Glucose 167 mg/dL (70-105); Osmolality,Calculated 290 (280-300); Potassium 4.6 mEq/L (3.5-5.1); Sodium 137 mEq/L (136-145); eGFR For African Americans 60 (> 60); eGFR For Non-African Americans 49 (> 60)
[2022-04-19 10:13] LABS: C-Reactive Protein < 5 mg/L (Less than 10)
[2022-04-19] MEDS ORDERED: Vancomycin 1,250 MG/262.5 ML IV.SOLN IVPB ONE (10:51)
[2022-04-19] MEDS ORDERED: Piperacillin/Tazobactam 3.375 GM in 0.9 % Sodium Chloride Mini Bag 100 ML IVPB ONE (10:51)
[2022-04-19] MEDS ORDERED: Naloxone 0.4 MG/ML INJ IVP PRN (11:24)
[2022-04-19] MEDS ORDERED: Ondansetron ODT 4 MG TAB.RAPDIS SL PRN (11:24)
[2022-04-19] MEDS ORDERED: Acetaminophen 325 MG TABLET PO PRN ×2 (11:24→13:02)
[2022-04-19] MEDS ORDERED: D5% in Water 1,000 ML IVC PRN (11:30)
[2022-04-19] MEDS ORDERED: *HR* Dextrose 50 % in Water (Syg) 50 ML SYRINGE IVP PRN (11:30)
[2022-04-19] MEDS ORDERED: Dextrose Gel 15 GM/37.5 ML TUBE PO PRN ×2 (11:30)
[2022-04-19] MEDS ORDERED: *HR* OxyCODONE/APAP 5/325 TABLET PO ONE (12:09)
[2022-04-19] MEDS: Insulin LISPRO 300 UNITS/3 ML VIAL SUBQ SCH ×3 (14:17→23:44)
[2022-04-19] MEDS: *HR* Heparin 5,000 UNIT/ML VIAL SQ SCH (17:34)
[2022-04-19] MEDS: Piperacillin/Tazobactam 3.375 GM in 0.9 % Sodium Chloride Mini Bag 100 ML IVPB SCH ×2 (17:34→23:55)
[2022-04-19] MEDS ORDERED: *HR* HYDROcodone/Acet 5/325 mg TABLET PO PRN (18:13)
[2022-04-19] MEDS: *HR* OxyCODONE/APAP 5/325 TABLET PO PRN (18:19)
[2022-04-19] MEDS: Metoprolol 100 MG TABLET PO SCH (19:55)
[2022-04-20] MEDS: *HR* OxyCODONE/APAP 5/325 TABLET PO PRN ×3 (04:16→16:58)
[2022-04-20 05:17] LABS: Basophils # 0.1 K/mcL (0.0-0.2); Basophils % 0.8 %; Eosinophils # 0.2 K/mcL (0.0-0.6); Eosinophils % 4.1 %; Hemoglobin 10.9 g/dL (12.9-16.9); Immature Granulocytes % 0.2 % (0-4); Lymphocytes % 16.3 %; Mean Corpuscular HGB Conc 31.1 g/dL (31.6-35.5); Mean Corpuscular Hemoglobin 26.6 pg (28.0-33.3); Mean Corpuscular Volume 85.4 fL (83.0-100.0); Mean Platelet Volume 11.6 fL (9.4-12.4); Monocytes # 0.5 K/mcL (0.0-1.3); Monocytes % 7.8 %; Neutrophils # 4.2 K/mcL (1.6-8.9); Platelet Count 181 K/mcL (140-400); Segmented Neutrophils % 70.8 %; White Blood Count 5.9 K/mcL (4.3-11.1)
[2022-04-20] MEDS: *HR* Heparin 5,000 UNIT/ML VIAL SQ SCH ×2 (05:36→16:59)
[2022-04-20] MEDS: Insulin LISPRO 300 UNITS/3 ML VIAL SUBQ SCH ×3 (05:36→18:24)
[2022-04-20 05:38] LABS: Albumin/Globulin Ratio 1.1 (1.1-2.2); Bilirubin,Total 1.1 mg/dL (0.3-1.0); Calcium 9.6 mg/dL (8.6-10.3); Globulin 3.5 g/dL (2.4-3.5); Potassium 4.5 mEq/L (3.5-5.1); Total Protein 7.5 g/dL (6.4-8.9)
[2022-04-20] MEDS: Piperacillin/Tazobactam 3.375 GM in 0.9 % Sodium Chloride Mini Bag 100 ML IVPB SCH ×4 (08:24→22:51)
[2022-04-20] MEDS: Metoprolol 100 MG TABLET PO SCH ×2 (08:25→22:05)
[2022-04-20] MEDS ORDERED: amLODIPine 5 MG TABLET PO SCH (09:00)
[2022-04-20] MEDS ORDERED: Aspirin Enteric Coated 81 MG Tablet PO SCH (09:00)
[2022-04-20] MEDS ORDERED: Vancomycin 1,250 MG/262.5 ML IV.SOLN IVPB SCH (11:00)
[2022-04-20] MEDS ORDERED: *HR* FentaNYL (PF) 100 MCG/2 ML VIAL ONE (11:50)
[2022-04-20] MEDS ORDERED: *HR* Propofol 200 MG/20 ML VIAL IVP ONE (11:50)
[2022-04-20] MEDS ORDERED: Lidocaine HCL 4 ML Topical Solution (Laryng-O-Jet Kit Sterile Pak) TP ONE (11:54)
[2022-04-20] MEDS ORDERED: Ondansetron 4 MG/2 ML VIAL ONE (11:54)
[2022-04-20] MEDS ORDERED: *HR* Rocuronium Bromide 50 MG/5 ML VIAL ONE (11:54)
[2022-04-20] MEDS ORDERED: Lidocaine -MPF 2% 2 ML VIAL ONE (11:54)
[2022-04-20] MEDS ORDERED: Ondansetron 4 MG/2 ML VIAL IVP PRN ×2 (11:55→16:28)
[2022-04-20] MEDS ORDERED: *HR* Midazolam HCl 2 MG/2 ML VIAL ONE (12:02)
[2022-04-20] MEDS ORDERED: Lidocaine Jelly 11 ml Syringe ONE (12:45)
[2022-04-20] MEDS ORDERED: Acetaminophen IV 1,000 MG/100 ML BAG IVPB ONE (12:51)
[2022-04-20] MEDS ORDERED: EPHEDrine 50 MG/ML VIAL ONE (13:04)
[2022-04-20] MEDS ORDERED: *HR* HYDROMORPHONE 2 MG/ML VIAL ONE (13:30)
[2022-04-20] MEDS ORDERED: Sugammadex Sodium 200 MG/2 ML VIAL IV ONE (13:31)
[2022-04-20] MEDS: *HR* HYDROmorphone PF 0.5 MG/0.5 ML SYRINGE IVP PRN ×2 (15:32→15:42)
[2022-04-20] MEDS ORDERED: Dextrose Gel 15 GM/37.5 ML TUBE PO PRN ×2 (16:28)
[2022-04-20] MEDS ORDERED: *HR* HYDROmorphone PF 0.5 MG/0.5 ML SYRINGE IVP PRN (16:28)
[2022-04-20] MEDS ORDERED: Ondansetron ODT 4 MG TAB.RAPDIS SL PRN (16:28)
[2022-04-20] MEDS ORDERED: *HR* Dextrose 50 % in Water (Syg) 50 ML SYRINGE IVP PRN (16:28)
[2022-04-20] MEDS ORDERED: Naloxone 0.4 MG/ML INJ IVP PRN (16:28)
[2022-04-20] MEDS ORDERED: D5% in Water 1,000 ML IVC PRN (16:28)
[2022-04-20] MEDS ORDERED: Acetaminophen 325 MG TABLET PO PRN (16:28)
[2022-04-20] MEDS: *HR* HYDROcodone/Acet 5/325 mg TABLET PO PRN (18:24)
[2022-04-20] MEDS ORDERED: *HR* OxyCODONE Immed Rel 15 MG TABLET PO ONE (22:41)
[2022-04-21] MEDS: Insulin LISPRO 300 UNITS/3 ML VIAL SUBQ SCH ×4 (00:05→18:24)
[2022-04-21 05:57] LABS: Basophils % 0.1 %; Hematocrit 26.5 % (37.5-50.1); Immature Granulocytes % 0.4 % (0-4); Lymphocytes # 0.6 K/mcL (0.6-4.6); Lymphocytes % 7.8 %; Mean Corpuscular HGB Conc 31.7 g/dL (31.6-35.5); Mean Corpuscular Hemoglobin 26.9 pg (28.0-33.3); Mean Corpuscular Volume 84.9 fL (83.0-100.0); Mean Platelet Volume 11.7 fL (9.4-12.4); Monocytes # 0.5 K/mcL (0.0-1.3); Monocytes % 6.2 %; Neutrophils # 6.3 K/mcL (1.6-8.9); Platelet Count 158 K/mcL (140-400); Red Blood Count 3.12 M/mcL (4.19-5.50); Red Cell Distribution Width 15.1 % (11.5-14.5); Segmented Neutrophils % 85.5 %; White Blood Count 7.4 K/mcL (4.3-11.1)
[2022-04-21] MEDS: *HR* Heparin 5,000 UNIT/ML VIAL SQ SCH ×2 (05:58→16:52)
[2022-04-21 05:59] LABS: Hemoglobin 8.4 g/dL (12.9-16.9)
[2022-04-21 06:17] LABS: Calcium 9.1 mg/dL (8.6-10.3); Potassium 4.9 mEq/L (3.5-5.1)
[2022-04-21] MEDS: Metoprolol 100 MG TABLET PO SCH ×2 (08:07→21:03)
[2022-04-21] MEDS: *HR* OxyCODONE/APAP 5/325 TABLET PO PRN ×3 (08:07→23:51)
[2022-04-21] MEDS: amLODIPine 5 MG TABLET PO SCH (08:08)
[2022-04-21] MEDS: Aspirin Enteric Coated 81 MG Tablet PO SCH (08:08)
[2022-04-21] MEDS: 0.9 % Sodium Chloride 1,000 ML IVC SCH ×2 (08:09→16:53)
[2022-04-21] MEDS ORDERED: Vancomycin 1,250 MG/262.5 ML IV.SOLN IVPB SCH (11:00)
[2022-04-21] MEDS: *HR* HYDROcodone/Acet 5/325 mg TABLET PO PRN ×2 (13:12→22:21)
[2022-04-22] MEDS: 0.9 % Sodium Chloride 1,000 ML IVC SCH ×4 (00:45→22:02)
[2022-04-22] MEDS ORDERED: *HR* HYDROmorphone 2 MG TABLET PO ONE (01:24)
[2022-04-22] MEDS: Insulin LISPRO 300 UNITS/3 ML VIAL SUBQ SCH ×4 (01:30→17:49)
[2022-04-22 05:56] LABS: Basophils % 0.4 %; Eosinophils # 0.1 K/mcL (0.0-0.6); Eosinophils % 0.8 %; Hematocrit 25.1 % (37.5-50.1); Hemoglobin 7.8 g/dL (12.9-16.9); Immature Granulocytes % 0.3 % (0-4); Lymphocytes # 1.1 K/mcL (0.6-4.6); Lymphocytes % 15.4 %; Mean Corpuscular HGB Conc 31.1 g/dL (31.6-35.5); Mean Corpuscular Hemoglobin 26.6 pg (28.0-33.3); Mean Corpuscular Volume 85.7 fL (83.0-100.0); Mean Platelet Volume 11.4 fL (9.4-12.4); Monocytes # 0.7 K/mcL (0.0-1.3); Monocytes % 9.5 %; Neutrophils # 5.5 K/mcL (1.6-8.9); Platelet Count 144 K/mcL (140-400); Red Blood Count 2.93 M/mcL (4.19-5.50); Red Cell Distribution Width 15.4 % (11.5-14.5); Segmented Neutrophils % 73.6 %; White Blood Count 7.4 K/mcL (4.3-11.1)
[2022-04-22 06:16] LABS: BUN/Creatinine Ratio 14 (6-26); Blood Urea Nitrogen 20 mg/dL (8-23); Calcium 8.6 mg/dL (8.6-10.3); Carbon Dioxide 28 mEq/L (23-29); Chloride 106 mEq/L (98-107); Glucose 155 mg/dL (70-105); Osmolality,Calculated 292 (280-300); Potassium 4.4 mEq/L (3.5-5.1); Sodium 138 mEq/L (136-145); eGFR For African Americans > 60 (> 60); eGFR For Non-African Americans 51 (> 60)
[2022-04-22] MEDS: *HR* Heparin 5,000 UNIT/ML VIAL SQ SCH ×2 (06:29→17:49)
[2022-04-22] MEDS: Metoprolol 100 MG TABLET PO SCH ×2 (09:04→20:03)
[2022-04-22] MEDS: amLODIPine 5 MG TABLET PO SCH (09:04)
[2022-04-22] MEDS: Aspirin Enteric Coated 81 MG Tablet PO SCH (09:04)
[2022-04-22] MEDS: *HR* HYDROcodone/Acet 5/325 mg TABLET PO PRN ×2 (09:42→20:03)
[2022-04-22] MEDS ORDERED: *HR* Labetalol 20 MG/4 ML SYRINGE IVP ONE (23:12)
[2022-04-23] MEDS: Insulin LISPRO 300 UNITS/3 ML VIAL SUBQ SCH ×4 (02:07→17:18)
[2022-04-23 02:53] LABS: Basophils % 0.6 %; Eosinophils # 0.2 K/mcL (0.0-0.6); Hematocrit 23.8 % (37.5-50.1); Hemoglobin 7.6 g/dL (12.9-16.9); Immature Granulocytes % 0.4 % (0-4); Lymphocytes % 17.7 %; Mean Corpuscular HGB Conc 31.9 g/dL (31.6-35.5); Mean Corpuscular Hemoglobin 27.5 pg (28.0-33.3); Mean Corpuscular Volume 86.2 fL (83.0-100.0); Mean Platelet Volume 11.6 fL (9.4-12.4); Monocytes # 0.6 K/mcL (0.0-1.3); Monocytes % 10.7 %; Neutrophils # 3.7 K/mcL (1.6-8.9); Platelet Count 137 K/mcL (140-400); Red Blood Count 2.76 M/mcL (4.19-5.50); Red Cell Distribution Width 15.5 % (11.5-14.5); Segmented Neutrophils % 67.6 %; White Blood Count 5.4 K/mcL (4.3-11.1)
[2022-04-23 03:14] LABS: BUN/Creatinine Ratio 14 (6-26); Blood Urea Nitrogen 19 mg/dL (8-23); Calcium 8.6 mg/dL (8.6-10.3); Carbon Dioxide 25 mEq/L (23-29); Chloride 105 mEq/L (98-107); Glucose 199 mg/dL (70-105); Osmolality,Calculated 294 (280-300); Sodium 138 mEq/L (136-145); eGFR For African Americans > 60 (> 60); eGFR For Non-African Americans 53 (> 60)
[2022-04-23] MEDS: *HR* Heparin 5,000 UNIT/ML VIAL SQ SCH ×2 (04:37→17:18)
[2022-04-23] MEDS: *HR* OxyCODONE/APAP 5/325 TABLET PO PRN ×3 (04:38→19:58)
[2022-04-23] MEDS: Aspirin Enteric Coated 81 MG Tablet PO SCH (07:46)
[2022-04-23] MEDS: Metoprolol 100 MG TABLET PO SCH ×2 (07:46→19:58)
[2022-04-23] MEDS: amLODIPine 5 MG TABLET PO SCH (07:46)
[2022-04-23] MEDS: 0.9 % Sodium Chloride 1,000 ML IVC SCH ×2 (07:46→14:41)
[2022-04-23] MEDS ORDERED: amLODIPine 5 MG TABLET PO ONE (08:33)
[2022-04-24] MEDS: Insulin LISPRO 300 UNITS/3 ML VIAL SUBQ SCH ×4 (05:56→18:07)
[2022-04-24] MEDS: *HR* Heparin 5,000 UNIT/ML VIAL SQ SCH ×2 (06:18→18:07)
[2022-04-24] MEDS: Aspirin Enteric Coated 81 MG Tablet PO SCH (07:33)
[2022-04-24] MEDS: Metoprolol 100 MG TABLET PO SCH (07:33)
[2022-04-24] MEDS ORDERED: amLODIPine 5 MG TABLET PO SCH (09:00)
[2022-04-24 10:20] LABS: Immature Reticulocyte % 27.6 % (11.0-38.0); Retculocyte # 0.06 M/mcL (0.05-0.10); Reticulocyte % 1.8 % (1.6-2.8)
[2022-04-24 10:44] LABS: % Iron Saturation 5 % (20-55); Iron 21 mcg/dL (65-175); Transferrin 275 mg/dL (203-362)
[2022-04-24 10:58] LABS: Ferritin 17 ng/mL (20-250)
[2022-04-24] MEDS: *HR* OxyCODONE/APAP 5/325 TABLET PO PRN (14:07)
[2022-04-24 14:54] LABS: Influenza A PCR Negative (Negative); Influenza B PCR Negative (Negative); Resp. Syncytial Virus PCR Negative (Negative)
[2022-04-24 14:55] LABS: SARS-CoV-2 by PCR (In House) Negative (Negative)
[2022-04-24 15:03] VITALS: BP 156/69; PULSE 92; TEMP 97.8; O2SAT 96
== END 2022-04-24 18:24 | DRG 475 ==
LOC: EMEROOARM 08:16 → 3BNU 08:16
PROVIDERS: ADMIT Internal Medicine; ATTEND Internal Medicine